=== PATIENT | female | born 1930 | race Caucasian/White ===

== ENCOUNTER → 2017-09-19 | Outpatient (CLI) | payer MEDICARE ==
[~2017-09-19] MED LIST: CALC600T34 PO; COLA100C OR; IBUP400T20 PO; LEVO75TA42 PO; OMEP20TA OR; TAB-TAB PO; TRAM50 PO
--- NOTE | 2017-09-19 10:07 | RADRPT ---
EXAM DATE/TIME: 09/19/2017 00:00 [facility] COMPARISON: No previous studies available for comparison. PET-CT performed at [facility] on 09/13/2017. INDICATIONS : Request for thyroid biopsy. IMAGING STUDIES: The prior imaging study demonstrates diffuse hypermetabolic activity within the thyroid gland. There is no focal thyroid nodule visualized. Patient also has multiple hypermetabolic enlarged lymph nodes. CONCLUSION: The prior study demonstrated diffusely abnormal activity in a pattern suggesting a thyroiditis, Pippa inocencia's being one of the most common. It is not in a pattern to indicate metastatic disease and no foc al nodule is present to direct biopsy based on the CT scan. Consider correlating with thyroid ultraso und and the patient's thyroid laboratory values.. Naga Minor MD on September 19, 2017 at 10:02 Board Certified Radiologist. This report was verified electronically.
== END ==
LOC: HRAD 09:47
PROVIDERS: ATTEND Internal Medicine Hematology & Oncology
DX: E07.9 Disorder of thyroid, unspecified (principal)

== ENCOUNTER 2017-12-12 12:51 | Day surgery (SDC) | payer MEDICARE ==
[2017-12-12 13:28] VITALS: BP 180/84; PULSE 69; RESP 14; TEMP 97; O2SAT 100
[2017-12-12 14:15] VITALS: BP 150/70; PULSE 63; RESP 20; TEMP 97.4; O2SAT 96
[2017-12-12 14:30] VITALS: BP 134/70; PULSE 64; RESP 20; O2SAT 99
[2017-12-12] MEDS ORDERED: LIDOCAINE HCL 1% 20 ML VIAL ONE (15:29)
--- NOTE | 2017-12-12 16:18 | RADRPT ---
EXAM DATE/TIME: 12/12/2017 13:33 [facility] COMPARISON: No previous studies available for comparison. EXTERNAL COMPARISON: [facility], PET /CT Tumor Metabolism, Sep 13 2017. INDICATIONS : Left supraclavicular mass; enlarged lymp nodes. MEDICAL HISTORY : Left kidney cancer. Hypertension. Hemorrhoids. SURGICAL HISTORY : Left kidney biopsy and nephrectomy. Ureter removed. Appendetomy. Uterine suspension. Bladder scra ping. Cataract. Colectomy. Cystectomy. Foot surgery. Gastric bypass. Hemorrhoidectomy. Colono scopy. ENCOUNTER: Initial ACUITY: 2 months PAIN SCORE: 0/10 LOCATION: Left neck ORGAN: Left lymph node SPECIMENS: Three core specimen(s) submitted for pathologic evaluation. DEVICE: 18 gauge Temno needle Post procedure scanning reveals no hematoma or other complication. The possibility does exist that the tissue obtained will be non-diagnostic. If the sample is non-juan miguel gnostic a repeat biopsy or surgical biopsy may need to be performed. TECHNIQUE: 1. Ultrasound guidance for needle biopsy. 2. Needle biopsy. The risks, benefits and alternatives to the procedure were explained and verbal and written consent w as obtained. The site was prepped in sterile fashion. Full sterile technique was used, including ca p, mask, sterile gloves and gown and a large sterile sheet. Hand hygiene and 2% chlorhexidine and/or betadine/alcohol prep was utilized per protocol for cutaneous antisepsis. The skin and subcutaneous tissues were infiltrated with local anesthetic solution. Sterile gel and sterile probe cover were u tilized for ultrasound guidance. With the patient on the ultrasound table, images were obtained. A needle was advanced into the identified target and the number of specimens as above obtained and soriano bmitted for pathologic evaluation. The patient tolerated the procedure well and left the ultrasound suite in stable condition. CONCLUSION: Uncomplicated ultrasound guided needle biopsy in left neck. Ronnie Rankin MD on December 12, 2017 at 16:14 Board Certified Radiologist. This report was verified electronically.
== END 2017-12-12 14:33 | disposition home or self-care (01) ==
LOC: HRAD 12:51 → HRIP 12:53 → HRAD 14:33
PROVIDERS: ATTEND Internal Medicine Hematology & Oncology
DX: C77.4 Secondary and unspecified malignant neoplasm of inguinal and lower limb lymph nodes (principal); I10 Essential (primary) hypertension; Z85.528 Personal history of other malignant neoplasm of kidney; Z98.84 Bariatric surgery status
CPT/HCPCS: 38505; 76942; 88305; 88331; 88341; 88342

== ENCOUNTER 2018-02-10 15:55 | Inpatient (IN) | payer MEDICARE ==
[~2018-02-10] VITALS: Ht 157.5 cm; Wt 59.7 kg
[2018-02-10 16:22] VITALS: BP 153/72; PULSE 78; RESP 20; TEMP 97.5; O2SAT 98
[2018-02-10 17:26] LABS: AUTOMATED NEUTROPHIL # 6.8 TH/MM3 (1.8-7.7); BASOPHIL % 0.3 % (0.0-2.0); EOSINOPHIL # 0.1 TH/MM3 (0-0.4); EOSINOPHIL % 1.2 % (0.0-4.0); HEMATOCRIT 30.7 % (35.0-46.0); HEMOGLOBIN 10.3 GM/DL (11.6-15.3); LYMPH % 14.5 % (9.0-44.0); LYMPHOCYTE # 1.4 TH/MM3 (1.0-4.8); MEAN CELL VOLUME 86.8 FL (80.0-100.0); MEAN CORPUSCULAR HEMOGLOBIN 29.2 PG (27.0-34.0); MEAN CORPUSCULAR HGB CONC 33.7 % (32.0-36.0); MEAN PLATELET VOLUME 6.6 FL (7.0-11.0); MONO % 13.2 % (0.0-8.0); MONOCYTE # 1.3 TH/MM3 (0-0.9); NEUT % 70.8 % (16.0-70.0); PLATELET COUNT 353 TH/MM3 (150-450); RED BLOOD COUNT 3.53 MIL/MM3 (4.00-5.30); WHITE BLOOD COUNT 9.6 TH/MM3 (4.0-11.0)
[2018-02-10 17:33] LABS: PROTHROMBIN TIME - PATIENT 10.5 SEC (9.8-11.6)
[2018-02-10 17:43] LABS: ALBUMIN 2.8 GM/DL (3.4-5.0); ALT (GPT) 70 U/L (10-53); AST (GOT) 90 U/L (15-37); BICARBONATE 22.3 MEQ/L (21.0-32.0); BLOOD UREA NITROGEN 70 MG/DL (7-18); CHLORIDE 99 MEQ/L (98-107); CREATININE 9.12 MG/DL (0.50-1.00); GLOMERULAR FILTRATION RATE 4 ML/MIN (>89); GLUCOSE,RANDOM 95 MG/DL (74-106); SODIUM (NA) 133 MEQ/L (136-145)
--- NOTE | 2018-02-10 17:44 | RADRPT ---
EXAM DATE/TIME: 02/10/2018 17:15 [facility] COMPARISON: US GUIDED LYMPH NODE BIOSPY, LT, December 12, 2017, 13:33. INDICATIONS : Bilateral leg swelling. MEDICAL HISTORY : Left kidney cancer. Hypertension. Hemorrhoids. SURGICAL HISTORY : Left kidney biopsy and nephrectomy. Ureter removed. Appendetomy. Uterine suspension. Bladder scraping . Cataract. Colectomy. Cystectomy. Foot surgery. Gastric bypass. Hemorrhoidectomy. Colonoscopy. ENCOUNTER: Initial ACUITY: 1 week PAIN SCORE: 2/10 LOCATION: Bilateral legs. TECHNIQUE: Venous ultrasound of the left and right leg was performed from the inguinal ligament to the proximal calf. Real-time, color Doppler and spectral tracing, compression and augmentation techniques were us ed. FINDINGS: RIGHT LEG: There is normal compressibility of the deep venous system from the inguinal region to the proximal ca lf. No echogenic clot is seen in the lumen of the common femoral, femoral, popliteal, and posterior tibial veins. There is a normal response of the venous system to proximal and distal augmentation an d respiration. LEFT LEG: There is normal compressibility of the deep venous system from the inguinal region to the proximal ca lf. No echogenic clot is seen in the lumen of the common femoral, femoral, popliteal, and posterior tibial veins. There is a normal response of the venous system to proximal and distal augmentation an d respiration. CONCLUSION: 1. No DVT identified within either lower extremity. Luis Echevarria MD on February 10, 2018 at 17:42 Board Certified Radiologist. This report was verified electronically.
[2018-02-10 17:46] LABS: ALKALINE PHOSPHATASE 238 U/L (45-117); TOTAL BILIRUBIN ADULT 0.3 MG/DL (0.2-1.0); TOTAL PROTEIN 7.3 GM/DL (6.4-8.2)
[2018-02-10 19:11] VITALS: BP 210/94; PULSE 91; RESP 20; TEMP 98; O2SAT 98
[2018-02-10] MEDS ORDERED: LEVO75TA3 PO (19:14)
[2018-02-10] MEDS ORDERED: CALC500C2 CHEW (19:14)
[2018-02-10] MEDS ORDERED: CHLO25TA2 PO (19:14)
[2018-02-10] MEDS ORDERED: OMEP20TA93 PO (19:14)
[2018-02-10] MEDS ORDERED: MULTTAB67 PO (19:14)
[2018-02-10] MEDS ORDERED: AMLO2.5T PO (19:14)
--- NOTE | 2018-02-10 19:36 | PD ---
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 Pt follows with oncologist Dr. Wall and is on immunotherapy Ktruda. Pt comes in today because she had left leg pain for a few days that is worst with walking. Also said she is not urinating as much today and only very little when she does urinate which is not her normal. Denies any fever, chest pain, sob, n/v, abdominal pain, focal weakness or numbness. Denies any trauma. Has chronic back pain. PFSH Past Medical History Diminished Hearing: No Musculoskeletal: Yes (CHRONICRIGHT SHOULDER PAIN) Immunizations Current: Yes Thyroid Disease: Yes Tetanus Vaccination: Unknown Influenza Vaccination: No ?: Not : 4 Past Surgical History Appendectomy: Yes Genitourinary Surgery: Yes (UTERINE SUSPENSION) Social History Alcohol Use: Yes (DAILY) Tobacco Use: No Substance Use: No Allergies-Medications (Allergen,Severity, Reaction): Coded Allergies: codeine (Unverified Allergy, Severe, 07/16/17) Reported Meds & Prescriptions Reported Meds & Active Scripts Active Reported Calcium (Calcium Carbonate-Cholecalciferol) 1,250-100 Mg-Unit Chew 1 Tab CHEW Multiple Vitamin 1 Tab 1 Tab PO DAILY Amlodipine (Amlodipine Besylate) 2.5 Mg Tab 2.5 Mg PO DAILY Omeprazole 20 Mg Tab 20 Mg PO DAILY Chlorthalidone 25 Mg Tab 25 Mg PO DAILY Levothyroxine (Levothyroxine Sodium) 75 Mcg Tab 75 Mcg PO DAILY Review of Systems Except as stated in HPI: all other systems reviewed are Neg Physical Exam Narrative GENERAL: 87yo F not in distress. SKIN: Focused skin assessment warm/dry. HEAD: Atraumatic. Normocephalic. EYES: Pupils equal and round. No scleral icterus. No injection or drainage. ENT: No nasal bleeding or discharge. Mucous membranes pink and moist. NECK: Trachea midline. No JVD. CARDIOVASCULAR: Regular rate and rhythm. No murmur appreciated. RESPIRATORY: No accessory muscle use. Clear to auscultation. Breath sounds equal bilaterally. GASTROINTESTINAL: Abdomen soft, mild ttp. No rebound tenderness or guarding. MUSCULOSKELETAL: RLE: DP2+. LLE: DP1+. Mild edema in bilateral legs. NEUROLOGICAL: Awake and alert. No obvious cranial nerve deficits. Motor grossly within normal limits in all extremities. Sensation equal. Normal speech. PSYCHIATRIC: Appropriate mood and affect; insight and judgment normal. Data Data Last Documented VS Vital Signs Date Time Temp Pulse Resp B/P (MAP) Pulse Ox O2 Delivery O2 Flow Rate FiO2 02/10/18 19:11 98.0 91 20 210/94 (132) 98 Room Air Orders Orders Complete Blood Count With Diff (02/10/18 16:25) Comprehensive Metabolic Panel (02/10/18 16:25) Prothrombin Time / Inr (Pt) (02/10/18 16:25) Act Partial Throm Time (Ptt) (02/10/18 16:25) B-Type Natriuretic Peptide (02/10/18 16:25) Us Leg Venous Doppler Bilat (02/10/18 ) Admit To Inpatient (02/10/18 ) Code Status (02/10/18 19:44) Vital Signs (Adult) Q4H (02/10/18 19:44) Activity Oob With Assistance (02/10/18 19:44) Clerk Operator / Telemetry .CONTINUOUS (02/10/18 19:44) Diet Heart Healthy (02/11/18 Breakfast) Sodium Chloride 0.9% Flush (Ns Flush) (02/10/18 19:45) Sodium Chloride 0.9% Flush (Ns Flush) (02/10/18 21:00) Acetaminophen (Tylenol) (02/10/18 19:45) Ondansetron Inj (Zofran Inj) (02/10/18 19:45) Basic Metabolic Panel (Bmp) (02/11/18 06:00) Complete Blood Count With Diff (02/11/18 06:00) Chest, Single Ap (02/10/18 19:44) Electrocardiogram (02/10/18 19:44) Pt Request For Service (02/10/18 19:44) Scd Bilateral/Knee High ISAIAH.BID (02/10/18 19:44) Naloxone Inj (Narcan Inj) (02/10/18 19:45) Bisacodyl Supp (Dulcolax Supp) (02/10/18 19:45) Inpatient Certification (02/10/18 ) Sodium Chlor 0.9% 1000 Ml Inj (Ns 1000 M (02/10/18 20:00) Consult Nephrology (02/10/18 ) Levothyroxine (Synthroid) (02/11/18 06:00) Pantoprazole (Protonix) (02/11/18 09:00) Sodium Chlor 0.9% 1000 Ml Inj (Ns 1000 M (02/10/18 20:00) Admit Order (Ed Use Only) (02/10/18 19:51) Labs Laboratory Tests Test 02/10/18 17:05 White Blood Count 9.6 TH/MM3 Red Blood Count 3.53 MIL/MM3 Hemoglobin 10.3 GM/DL Hematocrit 30.7 % Mean Corpuscular Volume 86.8 FL Mean Corpuscular Hemoglobin 29.2 PG Mean Corpuscular Hemoglobin Concent 33.7 % Red Cell Distribution Width 14.0 % Platelet Count 353 TH/MM3 Mean Platelet Volume 6.6 FL Neutrophils (%) (Auto) 70.8 % Lymphocytes (%) (Auto) 14.5 % Monocytes (%) (Auto) 13.2 % Eosinophils (%) (Auto) 1.2 % Basophils (%) (Auto) 0.3 % Neutrophils # (Auto) 6.8 TH/MM3 Lymphocytes # (Auto) 1.4 TH/MM3 Monocytes # (Auto) 1.3 TH/MM3 Eosinophils # (Auto) 0.1 TH/MM3 Basophils # (Auto) 0.0 TH/MM3 CBC Comment DIFF FINAL Differential Comment Prothrombin Time 10.5 SEC Prothromb Time International Ratio 1.0 RATIO Activated Partial Thromboplast Time 31.0 SEC Blood Urea Nitrogen 70 MG/DL Creatinine 9.12 MG/DL Random Glucose 95 MG/DL Total Protein 7.3 GM/DL Albumin 2.8 GM/DL Calcium Level 9.0 MG/DL Alkaline Phosphatase 238 U/L Aspartate Amino Transf (AST/SGOT) 90 U/L Alanine Aminotransferase (ALT/SGPT) 70 U/L Total Bilirubin 0.3 MG/DL Sodium Level 133 MEQ/L Potassium Level 4.7 MEQ/L Chloride Level 99 MEQ/L Carbon Dioxide Level 22.3 MEQ/L Anion Gap 12 MEQ/L Estimat Glomerular Filtration Rate 4 ML/MIN B-Type Natriuretic Peptide 293 PG/ML MDM Medical Decision Making Medical Screen Exam Complete: Yes Emergency Medical Condition: Yes Interpretation(s) EKG: NSR 79bpm. LAD. LBBB. Differential Diagnosis Arterial insufficiency vs. DVT vs. BONY Narrative Course 87yo F with bladder CA here with decrease urination and left leg pain. Labs reviewed, no leukocytosis. H/H low at 10.3/30.7. BUN/creatinine elevated at 70 /9.12. Discussed with Dr. Wall and he said her baseline is 1.5 and this is acute. Advise admission and nephrology consult and IV hydration. US bilateral lower extremity showed no DVT. Discussed with Dr. Camarillo and accepted to his service. Neprhology paged. Discussed with putty and caulking supervisor Dr. Wall and he recommends CT a/p- to r/o obstructive uropathy first. CT a/p ordered. CT a/p showed previous nephroureterectomy. 18mm mass in the nephrectomy bed and mass in the urinary bladder posterolaterally on the left, presumably recurrent disease. Metastatic retroperitoneal lymphadenopathy. Mild to moderate right hydronephrosis which is potentially pathologic but could also be benign congenital UPJ obstruction. Critical Care Narrative Aggregate critical care time was 35 minutes. Time to perform other separately billable procedures was not included in the critical care time. My time did not include minutes spent treating any other patients simultaneously or on activities that did not directly contribute to the patient's treatment. The services I provided to this patient were to treat and/or prevent clinically significant deterioration that could result in: cardiovascular collapse or . I provided critical care services requiring my management, as noted below: Chart data review, documentation time, medication orders and management, vital sign assessments/reviewing monitor data, ordering and reviewing lab tests, ordering and interpreting/reviewing x-rays and diagnostic studies, care of the patient and discussion of the patient with the admitting physicians. Diagnosis Primary Impression: BONY (acute kidney injury) Admitting Information Admitting Physician Requests: Admit Josefa Eaton DO Feb 10, 2018 19:36
[2018-02-10] MEDS ORDERED: ONDANSETRON HCL 4 MG/2 ML VIAL IVP PRN (19:45)
[2018-02-10] MEDS ORDERED: NALOXONE HCL 0.4 MG/ML AMP IV PUSH PRN (19:45)
[2018-02-10] MEDS ORDERED: SODIUM CHLORIDE 0.9% FLUSH 10 ML FLUSH IV FLUSH PRN (19:45)
[2018-02-10] MEDS ORDERED: BISACODYL 10 MG SUPP RECTAL PRN (19:45)
[2018-02-10 19:57] VITALS: BP 168/72; PULSE 88; RESP 20; TEMP 98.2; O2SAT 98
[2018-02-10] MEDS ORDERED: SODIUM CHLOR 0.9% 1000 ML INJ 1,000 ML IV ONE (20:00)
--- NOTE | 2018-02-10 20:07 | RADRPT ---
EXAM DATE/TIME: 02/10/2018 19:54 [facility] COMPARISON: No previous studies available for comparison. INDICATIONS : Bilateral leg swelling. MEDICAL HISTORY : Left kidney cancer. Hypertension. SURGICAL HISTORY : Nephrectomy, left. ENCOUNTER: Initial ACUITY: 1 week PAIN SCORE: 0/10 LOCATION: Bilateral chest FINDINGS: There is mild blunting of both costophrenic angles compatible scarring or very small effusions. No la rge effusion demonstrated. There is questionable right hilar mass. No infiltrate or pneumothorax. Heart size within normal limits. CONCLUSION: 1. Possible mass or lymphadenopathy in the right hilum. CT of the chest, preferably with intravenous contrast, is suggested if felt clinically indicated. 2. Bibasilar scarring versus very small pleural effusions. No acute infiltrate. Naga Rowan MD on February 10, 2018 at 20:03 Board Certified Radiologist. This report was verified electronically.
[2018-02-10] MEDS: SODIUM CHLORIDE 0.9% FLUSH 10 ML FLUSH IV FLUSH SCH (20:18)
[2018-02-10] MEDS: SODIUM CHLOR 0.9% 1000 ML INJ 1,000 ML IV SCH (20:19)
--- NOTE | 2018-02-10 21:00 | RADRPT ---
EXAM DATE/TIME: 02/10/2018 20:30 [facility] COMPARISON: No previous studies available for comparison. INDICATIONS : Unable to urinate. Possible obstructive uropathy. ORAL CONTRAST: No oral contrast ingested. RADIATION DOSE: 6.64 CTDIvol (mGy) MEDICAL HISTORY : Urothelial cell carcinoma SURGICAL HISTORY : Appendectomy. Nephrectomy, left. Uterine suspension ENCOUNTER: Initial ACUITY: 1 day PAIN SCALE: 0/10 LOCATION: abdomen TECHNIQUE: Volumetric scanning of the abdomen and pelvis was performed. Using automated exposure control and ad justment of the mA and/or kV according to patient size, radiation dose was kept as low as reasonably achievable to obtain optimal diagnostic quality images. DICOM format image data is available electro nically for review and comparison. FINDINGS: Patient is status post left nephrectomy. There is a 1.8 cm mass and several subcentimeter nodules in the nephrectomy bed. There is a 2.3 cm mass posterolaterally of the urinary bladder. There is retroperitoneal/aortocaval lymphadenopathy from the level of the renal arteries to the bifur cation and measuring up to 2.0 x 2.8 cm in greatest transaxial dimension. Numerous vague hypodense masses are seen in the liver measuring up to 4.7 cm in size compatible with metastatic disease. A few scattered small benign cysts of the liver also seen, the largest in the lef t hepatic lobe measuring approximately 1.7 cm. Mild to moderate right hydronephrosis, nonspecific but the features suggest quite possibly related to benign congenital UPJ obstruction. An approximately 1.4 x 1.8 cm right common iliac lymph node is no montserrat and does cause mild mass effect on the ureter. Lung bases are only partly included on the study. There are small, bilateral pleural effusions. No acute bony abnormality demonstrated. CONCLUSION: 1. Previous left nephroureterectomy. 18 mm mass in the nephrectomy bed and mass in the urinary bladde r posterolaterally on the left, presumably recurrent disease. 2. Metastatic retroperitoneal lymphadenopathy. 3. Metastatic liver disease. 4. Mild to moderate right hydronephrosis which is potentially pathologic but could also be benign con genital UPJ obstruction. Comparison to old studies would be helpful. Please see above. 5. Trace ascites. Also mild body wall edema/anasarca. 6. Small bilateral pleural effusions of the visualized lung bases. Naga Rowan MD on February 10, 2018 at 20:48 Board Certified Radiologist. This report was verified electronically.
[2018-02-10 21:06] LABS: BILIRUBIN, URINE NEG (NEG); BLOOD, URINE MOD (NEG); GLUCOSE,URINE NEG (NEG); KETONE, URINE NEG (NEG); NITRITE,URINE NEG (NEG); PH, URINE 5.5 (5.0-8.5); URINE COLOR LIGHT-YELLOW (YELLW/STRAW); URINE LEUKOCYTE ESTERASE NEG (NEG)
[2018-02-10] MEDS: ACETAMINOPHEN 325 MG TAB PO PRN (22:49)
[2018-02-11] VITALS (12 sets, daily range): BP systolic 126–185; BP diastolic 59–81; PULSE 67–92; RESP 16–20; TEMP 97.8–99.4; O2SAT 96–100
[2018-02-11] MEDS: SODIUM CHLOR 0.9% 1000 ML INJ 1,000 ML IV SCH ×2 (06:14→17:11)
[2018-02-11] MEDS: LEVOTHYROXINE SODIUM 75 MCG TAB PO SCH (06:14)
[2018-02-11 08:45] LABS: BASOPHIL % 0.3 % (0.0-2.0); EOSINOPHIL # 0.1 TH/MM3 (0-0.4); HEMATOCRIT 28.5 % (35.0-46.0); HEMOGLOBIN 9.7 GM/DL (11.6-15.3); LYMPH % 16.8 % (9.0-44.0); LYMPHOCYTE # 1.7 TH/MM3 (1.0-4.8); MEAN CELL VOLUME 88.2 FL (80.0-100.0); MONO % 13.7 % (0.0-8.0); MONOCYTE # 1.4 TH/MM3 (0-0.9); NEUT % 68.2 % (16.0-70.0); PLATELET COUNT 362 TH/MM3 (150-450); RED BLOOD COUNT 3.23 MIL/MM3 (4.00-5.30); RED CELL DISTRIBUTION WIDTH 14.4 % (11.6-17.2); WHITE BLOOD COUNT 10.3 TH/MM3 (4.0-11.0)
[2018-02-11] MEDS: PANTOPRAZOLE SOD 20 MG DELAYED RELEASE TAB PO SCH (09:00)
[2018-02-11] MEDS: SODIUM CHLORIDE 0.9% FLUSH 10 ML FLUSH IV FLUSH SCH ×2 (09:00→21:00)
[2018-02-11 09:21] LABS: BICARBONATE 18.4 MEQ/L (21.0-32.0); CALCIUM 9.1 MG/DL (8.5-10.1); CREATININE 9.38 MG/DL (0.50-1.00)
[2018-02-11] MEDS ORDERED: LEVOFLOXACIN 500 MG PREMIX INJ 100 ML IV ONE (10:00)
--- NOTE | 2018-02-11 10:24 | MB ---
cc: Tanner Wall MD DATE OF CONSULT: 02/11/2018 TIME OF CONSULTATION: 8:20 a.m. CONSULT REQUESTED BY: The hospitalist service. 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 CURRENT TREATMENT: The patient is on palliative first line immunotherapy with Keytruda, she is status post 2 cycles with cycle #2 delivered on 02/05/2018. CHIEF COMPLAINT: 1. Ms. Parra reports decreased urinary output for the past 4 days. 2. She reports blood-tinged scant urine for the past 4 days. 3. She reports a 7 pound weight gain. 4. She reports leg swelling and pain in her legs as well. HISTORY OF PRESENT ILLNESS: Ms. Parra is an 87-year-old female who is known to me from my outpatient oncology practice. Ms. 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 She underwent evaluation with Dr. Edwards of [facility] and in late July underwent surgical resection. She underwent a left nephrectomy, left ureterectomy for removal of the ureteric lesion. Her bladder tumor was also resected. She was noted during surgery to have pathologically enlarged retroperitoneal lymph nodes which were biopsied. After undergoing surgery, she was referred to myself. She underwent evaluation and then staging studies. PET/CT scan performed postop revealed findings of neoplastic adenopathy involving the base of the left neck, left axillary lymphadenopathy, as well as diffuse paraaortic, retroperitoneal lymphadenopathy. Nonspecific subcentimeter pulmonary nodules were also identified. The patient was offered palliative systemic therapy at that time. She declined in favor of observation alone. The patient was periodically followed by myself. In 12/2016, she developed progressive symptoms of lymphadenopathy along the left side of her neck. She developed abdominal pain and was losing weight. Restaging imaging scans from 12/24/2017 revealed findings of worsening metastatic disease involving the supraclavicular lymph nodes in the mediastinum, as well as in the lungs. She was recommended image-guided biopsy of the left supraclavicular lymph node which was performed on 12/12/2017. This revealed findings consistent with high-grade metastatic urothelial cell carcinoma. She was initiated on palliative immunotherapy with Keytruda in 01/2018, she received her second cycle in early 01/2018. Clinically she was noted to have a significant reduction in size of the left supraclavicular lymphadenopathy. She developed the above-noted symptoms less than a week ago and presented to [facility] last night for further work up and evaluation. She was noted to have a creatinine of 9 on 01/31/2018. Outpatient labs performed at [facility] revealed a creatinine of 1.55. PAST MEDICAL HISTORY: 1. 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 2. Hemorrhoids. 3. Chronic kidney insufficiency. PAST SURGICAL HISTORY: 1. Appendectomy. 2. Cataract removal. 3. Partial colectomy. 4. Colonoscopy. 5. Cystoscopy. 6. Foot surgery. 7. Gastric bypass. 8. Hemorrhoidectomy. 9. Left nephroureterectomy with transurethral resection of bladder tumor in 07/2017. 10. Tooth implants. 11. Ureteroscopy. GYNECOLOGIC HISTORY: 4, para 4, postmenopausal. FAMILY HISTORY: Mother had diabetes. Father of metastatic malignancy. SOCIAL HISTORY: The patient is . She lives at home alone. She has children who are very supportive. She reports formerly being a smoker, but she quit about 40 years ago. She is originally from [place]. ALLERGIES: NORA INHIBITORS, CIPRO, CODEINE, OPIOIDS, TRAMADOL. CURRENT INPATIENT MEDICATIONS: 1. Normal saline 100 mL/hr. 2. Levothyroxine 75 mcg by mouth daily. 3. Pantoprazole 40 mg by mouth daily. REVIEW OF SYSTEMS: Thirteen point review of systems was obtained. The following are the pertinent positives in addition to which she has already mentioned. She reports decreased appetite, weakness, fatigue, weight gain. She reports having had chills, as well as night sweats. Maximum temperature noted at home was 100.7 degrees F three nights ago. HEENT: No complaints. RESPIRATORY: Exertional dyspnea, denies cough or hemoptysis. CARDIOVASCULAR: Denies angina-like chest pain, PND, orthopnea. GI: She reports nausea. She denies vomiting. She denies diarrhea. She denies hematochezia. She reports tenderness in the lower abdomen. : Reports decreased urinary output. She reports occasional blood tinging in the urine. DIGITAL MEASUREMENT ADVISOR: Denies any focal sensory or motor deficits. LOWER EXTREMITIES: Bilateral lower extremity edema. SKIN: No complaints. PHYSICAL EXAMINATION: VITAL SIGNS: Temperature 97.8 degrees F, heart rate 67 beats per minute, respiratory rate 17, blood pressure 156/67, O2 sat is 97% on room air. GENERAL PHYSICAL APPEARANCE: Ms. Parra is an elderly lady, she appears to be somewhat frail, she appears to have swelling of the face as compared to a week ago. She is not acutely distress. She is sitting up at bedside. Her [id number] is at bedside too. HEENT: Head is atraumatic, normocephalic. Conjunctivae are pale. Sclerae anicteric, EOMI, PERRLA. Oral exam, dry mucus membranes. NECK: Pathologically enlarged shotty lymph nodes involving the left supraclavicular area, these are significantly decreased in size when compared to a month ago. RESPIRATORY EXAM: Good air movement bilaterally. No added breath sounds. CARDIOVASCULAR: Regular rate and rhythm, S1 and S2. No obvious murmurs, rubs or gallops. ABDOMINAL EXAM: Thin belly, soft, no hepatosplenomegaly. There is tenderness over the suprapubic area and over the left lower quadrant. LOWER EXTREMITIES: Trace bilateral pretibial edema, no calf tenderness. DIGITAL MEASUREMENT ADVISOR: No focal sensory or motor deficits. LABORATORY FINDINGS: BLOOD WORK DATED 02/01/2018: WBC count 10.3, hemoglobin 9.7 g/dL, hematocrit 28.5%, platelet count 362, absolute neutrophil count is 7. CHEMISTRIES: Sodium 133, potassium 4.7, chloride 99, bicarb 22.3, BUN 70, creatinine 9.12, EGFR is 4, random glucose 95, total bilirubin 0.3, AST 90, ALT 70, alkaline phosphatase 238, BNP is 293, albumin is 2.8. COAGS: PT 10.5, INR 1, PTT 31. IMAGING STUDIES: CT SCAN: CT scan of the abdomen and pelvis without IV contrast reveals status post left nephrectomy. 18 mm mass in the nephrectomy bed and a mass in the urinary bladder posterolaterally on the left side. Metastatic retroperitoneal adenopathy. Metastatic hepatic disease. Mild to moderate right hydronephrosis which is potentially pathologic, but could also be benign. There could be UPJ obstruction. Trace ascites. Small bilateral pleural effusions noted. ASSESSMENT: Ms. Parra is a very pleasant 87-year-old lady with a diagnosis of metastatic high-grade urothelial cell carcinoma of the bladder with biopsy-proven supraclavicular metastases. She also has significant metastatic disease burden involving the retroperitoneal lymph nodes, mediastinal lymph nodes and now liver metastases as well, mediastinal lymph nodes and what appears to be new hepatic metastases based on imaging studies performed last night. She presents to the hospital with acute on chronic renal failure. She has an oliguric kidney injury given her lack of urine output over the past 3 or 4 days. Imaging studies indicate possible ureteric obstruction on the right side. RECOMMENDATIONS: 1. Acute kidney failure, this may be related to ureteric obstruction secondary to possible malignant lymphadenopathy in the retroperitoneum or possible obstruction at the level of the bladder secondary to malignancy. I have requested urologic evaluation by her primary urologist, Dr. Edwards for possible ureteric stent placement. She may also benefit from percutaneous nephrostomy. 2. The patient is awaiting evaluation by a senior java ui developer to determine if she is a candidate for renal replacement therapy at this time. 3. 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 She is status post 2 cycles, her response has yet to be determined. In light of the acute issues, I would like to discuss long-term management, as well as goals of care. Ms. Parra certainly has disease which is not curable given the extent of metastases. If she prefers, she may wish to pursue comfort oriented care if it comes to a point where she will require life-long hemodialysis/renal replacement therapy. I have yet to discuss long-term goals of care with her given the acute issues we are facing and our attempts to optimize her renal function aggressively at this point. MD OMARI Florian/MENDEL , 09:07 AM , 10:22 AM
--- NOTE | 2018-02-11 10:30 | HHI.HP ---
HPI Service [facility] Hospitalists Primary Care Physician Shadi Segura M.D. Admission Diagnosis BONY Chief Complaint: Decreased UOP Travel History International Travel<30 Days: No Contact w/Intl Traveler <30 Da: No Traveled to Known Affected Are: No History of Present Illness Mrs. 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 Pt follows with Dr. Wall. Pt has undergone left nephrectomy and left ureterectomy in 2017 and she recently began palliative systemic chemo with Keytruda. Pt presented to the ED at [facility] [place] [place] on 02/10/18 with complaints of left leg pain for a few days that is worse with walking and decreased UOP. She reported that for 2 days prior to admission that she did not have any UOP and then yesterday there was only a very small amount of urine when she does urinate which is not her normal. Labs in the ED revealed BONY with Cr 9.12, BUN 70, GFR 4. Outpt labs on 01/30/18 noted Cr 1.55, BUN 27, GRF 34. CT Abd/pelvis in the ED noted previous left nephroureterectomy, 18 mm mass in the nephrectomy bed and mass in the urinary bladder posterolaterally on the left, presumably recurrent disease, metastatic retroperitoneal lymphadenopathy, metastatic liver disease, mild to moderate right hydronephrosis which is potentially pathologic but could also be benign congenital UPJ obstruction. It also mild body wall edema/anasarca and small bilateral pleural effusions of the visualized lung bases. Pt denies any abd pain, chest pain, SOB, nausea/vomiting, fevers or chills. Review of Systems Constitutional: DENIES: Fever, Chills Respiratory: DENIES: Cough, Shortness of breath Cardiovascular: DENIES: Chest pain, Dyspnea on Exertion, Lower Extremity Edema Gastrointestinal: DENIES: Abdominal pain, Diarrhea, Nausea, Vomiting Musculoskeletal: COMPLAINS OF: Muscle aches Integumentary: DENIES: Rash Immunologic/allergic: DENIES: Urticaria Neurologic: DENIES: Headache Psychiatric: DENIES: Confusion Other Decreased UOP Past Family Social History Past Medical History Metastatic urothelial cell carcinoma of the bladder and ureter with biopsy proven mets to supraclavicular LN and radiographic evidence of retroperitoneal, mediastinal, axillary and pulmonary mets. Pt follows with Dr. Wall. Pt has undergone left nephrectomy and left ureterectomy. She recently began palliative systemic chemo with Keytruda. . Anemia Osteoarthritis Hx of vertigo GERD HTN Hypothyroidism Pulmonary HTN Past Surgical History Left nephrectomy with TURBT in 2017 Appendectomy Cataract surgery Cystectomy Gastric bypass Hemorrhoidectomy Reported Medications Calcium 1,250-100 Mg-Unit 1 Tab CHEW Multiple Vitamin 1 Tab PO DAILY Amlodipine 2.5 Mg PO DAILY Omeprazole 20 Mg PO DAILY Chlorthalidone 25 Mg PO DAILY Levothyroxine 75 Mcg PO DAILY Allergies: Coded Allergies: codeine (Unverified Allergy, Severe, 07/16/17) Family History Noncontributory Social History Remote hx of tobacco use, quit 40 years ago Occasional alcohol use She is and lives locally Physical Exam Vital Signs Vital Signs Date Time Temp Pulse Resp B/P (MAP) Pulse Ox O2 Delivery O2 Flow Rate FiO2 02/11/18 07:21 67 17 156/67 (96) 97 Room Air 02/11/18 06:37 78 20 154/66 (95) 98 Room Air 02/11/18 03:20 97.8 76 20 142/62 (88) 98 Room Air 02/11/18 00:16 20 02/11/18 00:00 98.0 72 20 156/68 (97) 98 Room Air 02/10/18 19:57 98.2 88 20 168/72 (104) 98 Room Air 02/10/18 19:11 98.0 91 20 210/94 (132) 98 Room Air 02/10/18 16:22 97.5 78 20 153/72 (99) 98 Physical Exam GENERAL: This is a well-nourished, well-developed patient, in no apparent distress. SKIN: No rashes, ecchymoses or lesions. Cool and dry. HEENT: Atraumatic. Normocephalic. No temporal or scalp tenderness. No scleral icterus. Airway patent. NECK: Trachea midline, supple, nontender. CARDIO: Regular. RESP: CTA bilaterally. No wheezes, rales, or rhonchi. ABD: +BS, soft, non-tender, nondistended. No hepato-splenomegaly, or palpable masses. No guarding. EXT: Minimal bilateral LE edema. Negative Barajas's sign NEURO: Awake and alert. Motor and sensory grossly within normal limits. Normal speech. Laboratory Laboratory Tests Test 02/10/18 17:05 02/10/18 20:25 02/11/18 07:35 White Blood Count 9.6 10.3 Red Blood Count 3.53 3.23 Hemoglobin 10.3 9.7 Hematocrit 30.7 28.5 Mean Corpuscular Volume 86.8 88.2 Mean Corpuscular Hemoglobin 29.2 30.0 Mean Corpuscular Hemoglobin Concent 33.7 34.0 Red Cell Distribution Width 14.0 14.4 Platelet Count 353 362 Mean Platelet Volume 6.6 7.0 Neutrophils (%) (Auto) 70.8 68.2 Lymphocytes (%) (Auto) 14.5 16.8 Monocytes (%) (Auto) 13.2 13.7 Eosinophils (%) (Auto) 1.2 1.0 Basophils (%) (Auto) 0.3 0.3 Neutrophils # (Auto) 6.8 7.0 Lymphocytes # (Auto) 1.4 1.7 Monocytes # (Auto) 1.3 1.4 Eosinophils # (Auto) 0.1 0.1 Basophils # (Auto) 0.0 0.0 CBC Comment DIFF FINAL DIFF FINAL Differential Comment Prothrombin Time 10.5 Prothromb Time International Ratio 1.0 Activated Partial Thromboplast Time 31.0 Blood Urea Nitrogen 70 73 Creatinine 9.12 9.38 Random Glucose 95 56 Total Protein 7.3 Albumin 2.8 Calcium Level 9.0 9.1 Alkaline Phosphatase 238 Aspartate Amino Transf (AST/SGOT) 90 Alanine Aminotransferase (ALT/SGPT) 70 Total Bilirubin 0.3 Sodium Level 133 134 Potassium Level 4.7 5.3 Chloride Level 99 100 Carbon Dioxide Level 22.3 18.4 Anion Gap 12 16 Estimat Glomerular Filtration Rate 4 4 B-Type Natriuretic Peptide 293 Urine Color LIGHT-YELLOW Urine Turbidity CLEAR Urine pH 5.5 Urine Specific [place] 1.007 Urine Protein NEG Urine Glucose (UA) NEG Urine Ketones NEG Urine Occult Blood MOD Urine Nitrite NEG Urine Bilirubin NEG Urine Urobilinogen LESS THAN 2.0 Urine Leukocyte Esterase NEG Urine RBC 57 Urine WBC 1 Microscopic Urinalysis Comment CULT NOT INDICATED Result Diagram: 02/11/18 0735 02/11/18 0735 Imaging Last Impressions Chest X-Ray 02/10/18 194 Signed Impressions: Service Date/Time: Saturday, February 10, 2018 19:54 - CONCLUSION: 1. Possible mass or lymphadenopathy in the right hilum. CT of the chest, preferably with intravenous contrast, is suggested if felt clinically indicated. 2. Bibasilar scarring versus very small pleural effusions. No acute infiltrate. Naga Rowan MD Lower Extremity Ultrasound 02/10/18 Signed Impressions: Service Date/Time: Saturday, February 10, 2018 17:15 - CONCLUSION: 1. No DVT identified within either lower extremity. Luis Echevarria MD Abdomen/Pelvis CT 02/10/18 Signed Impressions: Service Date/Time: Saturday, February 10, 2018 20:30 - CONCLUSION: 1. Previous left nephroureterectomy. 18 mm mass in the nephrectomy bed and mass in the urinary bladder posterolaterally on the left, presumably recurrent disease. 2. Metastatic retroperitoneal lymphadenopathy. 3. Metastatic liver disease. 4. Mild to moderate right hydronephrosis which is potentially pathologic but could also be benign congenital UPJ obstruction. Comparison to old studies would be helpful. Please see above. 5. Trace ascites. Also mild body wall edema/ anasarca. 6. Small bilateral pleural effusions of the visualized lung bases. Naga Rowan MD Caprini VTE Risk Assessment Caprini VTE Risk Assessment: Mod/High Risk (score >= 2) Caprini Risk Assessment Model Point Value = 1 Point Value = 2 Point Value = 3 Point Value = 5 Age 41-60 Minor surgery BMI > 25 kg/m2 Swollen legs Varicose veins or History of unexplained or recurrent spontaneous Oral contraceptives or hormone replacement Sepsis (< 1 month) Serious lung disease, including pneumonia (< 1 month) Abnormal pulmonary function Acute myocardial infarction Congestive heart failure (< 1 month) History of inflammatory bowel disease Medical patient at bed rest Age 61-74 Arthroscopic surgery Major open surgery (> 45 min) Laparoscopic surgery (> 45 min) Malignancy Confined to bed (> 72 hours) Immobilizing plaster cast Central venous access Age >= 75 History of VTE Family history of VTE Factor V Leiden Prothrombin [id number] Lupus anticoagulant Anticardiolipin antibodies Elevated serum homocysteine Heparin-induced thrombocytopenia Other congenital or acquired thrombophilia Stroke (< 1 month) Elective arthroplasty Hip, pelvis, or leg fracture Acute spinal cord injury (< 1 month) Prophylaxis Regimen Total Risk Factor Score Risk Level Prophylaxis Regimen 0-1 Low Early ambulation 2 Moderate Order ONE of the following: *Sequential Compression Device (SCD) *Heparin 5000 units SQ BID 3-4 Higher Order ONE of the following medications: *Heparin 5000 units SQ TID *Enoxaparin/Lovenox 40 mg SQ daily (WT < 150 kg, CrCl > 30 mL/min) *Enoxaparin/Lovenox 30 mg SQ daily (WT < 150 kg, CrCl > 10-29 mL/min) *Enoxaparin/Lovenox 30 mg SQ BID (WT < 150 kg, CrCl > 30 mL/min) AND/OR *Sequential Compression Device (SCD) 5 or more Highest Order ONE of the following medications: *Heparin 5000 units SQ TID (Preferred with Epidurals) *Enoxaparin/Lovenox 40 mg SQ daily (WT < 150 kg, CrCl > 30 mL/min) *Enoxaparin/Lovenox 30 mg SQ daily (WT < 150 kg, CrCl > 10-29 mL/min) *Enoxaparin/Lovenox 30 mg SQ BID (WT < 150 kg, CrCl > 30 mL/min) AND *Sequential Compression Device (SCD) Assessment and Plan Problem List: (1) Acute renal failure superimposed on stage 3 chronic kidney disease ICD Codes: N17.9 - Acute kidney failure, unspecified; N18.3 - Chronic kidney disease, stage 3 (moderate) Status: Acute Plan: - Pt is an 87 y/o female with metastatic urothelial cell carcinoma of the bladder and ureter with biopsy proven mets to supraclavicular LN and radiographic evidence of retroperitoneal, mediastinal, axillary and pulmonary mets. Pt follows with Dr. Wall. Pt has undergone left nephrectomy and left ureterectomy in 2017 and she recently began palliative systemic chemo with Keytruda. - Pt presented to the ED at [facility] [place] [place] on 02/10/18 with complaints of left leg pain for a few days that is worst with walking as well as decreased UOP - LE US was negative for DVT - Labs in the ED revealed BONY with Cr 9.12, BUN 70, GFR 4. Outpt labs on 01/30/18 noted Cr 1.55, BUN 27, GRF 34. - CT Abd/pelvis (02/10) --> previous left nephroureterectomy, 18 mm mass in the nephrectomy bed and mass in the urinary bladder posterolaterally on the left, presumably recurrent disease, metastatic retroperitoneal lymphadenopathy , metastatic liver disease, mild to moderate right hydronephrosis which is potentially pathologic but could also be benign congenital UPJ obstruction. It also mild body wall edema/anasarca and small bilateral pleural effusions of the visualized lung bases. - Nephrology was consulted at admission - Pt was started on IVF in the ED - Pts Oncologist, Dr. Wall, was also consulted - Repeat labs this morning with Cr 9.38, BUN 73, GFR 4 - Urology has been consulted as well as Interventional Radiology for Nephrostomy tube placement today - Monitor labs closely - Supportive care - DVT prophylaxis with SCDs for now, pt may need chemical DVT prophylaxis once no further procedures are recommended. (2) Malignant neoplasm metastatic from bladder ICD Codes: C67.9 - Malignant neoplasm of bladder, unspecified Status: Chronic Plan: - See above (3) Hypothyroidism ICD Codes: E03.9 - Hypothyroidism, unspecified Status: Chronic Plan: - Home meds continued (4) HTN (hypertension) ICD Codes: I10 - Essential (primary) hypertension Status: Chronic Plan: - Increase Norvasc to 5mg po daily for now - Clonidine PRN - Monitor (5) GERD (gastroesophageal reflux disease) ICD Codes: K21.9 - Gastro-esophageal reflux disease without esophagitis Status: Chronic Plan: - PPI Assessment and Plan Patient examined. Assessment and plan formulated with Katya Yeung PA-C. I agree with the above. Physician Certification 2 Midnight Certification Type: Admission for Inpatient Services Order for Inpatient Services The services are ordered in accordance with Medicare regulations or non- Medicare payer requirements, as applicable. In the case of services not specified as inpatient-only, they are appropriately provided as inpatient services in accordance with the 2-midnight benchmark. Estimated LOS (days): 3 3 days is the estimated time the patient will need to remain in the hospital, assuming treatment plan goals are met and no additional complications. Post-Hospital Plan: Not yet determined Katya Yeung Feb 11, 2018 10:30 Kenji Brice DO Feb 13, 2018 15:26
[2018-02-11] MEDS ORDERED: cloNIDine HCL 0.1 MG TAB PO PRN (11:15)
[2018-02-11] MEDS: amLODIPine BESYLATE 5 MG TAB PO SCH (11:44)
--- NOTE | 2018-02-11 12:19 | PD.CONS ---
HPI Service Urology Consult Requested By Dr Benites Reason for Consult Rt hydronephrosis Primary Care Physician Shadi Segura M.D. Diagnosis: (1) Acute renal failure superimposed on stage 3 chronic kidney disease ICD Code: N17.9 - Acute kidney failure, unspecified; N18.3 - Chronic kidney disease, stage 3 (moderate) (2) Malignant neoplasm metastatic from bladder ICD Code: C67.9 - Malignant neoplasm of bladder, unspecified (3) Hypothyroidism ICD Code: E03.9 - Hypothyroidism, unspecified (4) HTN (hypertension) ICD Code: I10 - Essential (primary) hypertension (5) GERD (gastroesophageal reflux disease) ICD Code: K21.9 - Gastro-esophageal reflux disease without esophagitis (6) Hydronephrosis ICD Code: N13.30 - Unspecified hydronephrosis History of Present Illness 87y.o F well known to urology for her h/o 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 She is s/p left [id number] by Dr Edwards on 07/2017. She is currently under care of oncologist and receiving immunotherapy. Last PET scan in December showed increase in mets of liver and periaortic lymph nodes as well as mediastinal lymph nodes. She was seen in clinic on 02/05/18 and was doing ok with her treatment. Recent cystoscopy was negative but FISH test was positive. Decision was made to finish treatment with oncology and f/u after. She is now admitted to [place] due to complaints of left leg pain for a few days that is worse with walking and decreased UOP. Labs in the ED revealed BONY with Cr 9.12, BUN 70, GFR 4. Outpt labs on 01/30/18 noted Cr 1.55, BUN 27, GRF 34. CT Abd/pelvis in the ED noted previous left nephroureterectomy, 18 mm mass in the nephrectomy bed and mass in the urinary bladder posterolaterally on the left, presumably recurrent disease, metastatic retroperitoneal lymphadenopathy, metastatic liver disease, mild to moderate right hydronephrosis which is potentially pathologic but could also be benign congenital UPJ obstruction. She has no f/c/n/v, no abd pain. Her findings of right hydronephrosis are due to mass effect on a ureter from enlarged lymph nodes . Review of Systems Except as stated in HPI: all other systems reviewed are Neg Past Family Social History Past Medical History Metastatic urothelial cell carcinoma of the bladder and ureter with biopsy proven mets to supraclavicular LN and radiographic evidence of retroperitoneal, mediastinal, axillary and pulmonary mets. Pt follows with Dr. Wall. Pt has undergone left nephrectomy and left ureterectomy. She recently began palliative systemic chemo with Keytruda. . Anemia Osteoarthritis Hx of vertigo GERD HTN Hypothyroidism Pulmonary HTN Past Surgical History Left nephrectomy with TURBT in 2017 Appendectomy Cataract surgery Cystectomy Gastric bypass Hemorrhoidectomy Allergies: Coded Allergies: codeine (Unverified Allergy, Severe, 07/16/17) Family History n/a Social History Remote hx of tobacco use, quit 40 years ago Occasional alcohol use She is and lives locally Physical Exam Vital Signs Date Time Temp Pulse Resp B/P (MAP) Pulse Ox O2 Delivery O2 Flow Rate FiO2 02/11/18 11:52 67 17 158/81 (106) 100 Room Air 02/11/18 11:45 73 17 185/78 (113) 98 Room Air 02/11/18 07:21 67 17 156/67 (96) 97 Room Air 02/11/18 06:37 78 20 154/66 (95) 98 Room Air 02/11/18 03:20 97.8 76 20 142/62 (88) 98 Room Air 02/11/18 00:16 20 02/11/18 00:00 98.0 72 20 156/68 (97) 98 Room Air 02/10/18 19:57 98.2 88 20 168/72 (104) 98 Room Air 02/10/18 19:11 98.0 91 20 210/94 (132) 98 Room Air 02/10/18 16:22 97.5 78 20 153/72 (99) 98 Physical Exam GENERAL: This is a well-nourished, well-developed patient, in no apparent distress. CARDIOVASCULAR: Regular rate and rhythm without murmurs RESPIRATORY: Clear to auscultation. Breath sounds equal bilaterally. No wheezes , rales, or rhonchi. GASTROINTESTINAL: Abdomen soft, non-tender, nondistended. . GENITOURINARY:bladder not distended, no CVAT MUSCULOSKELETAL: Extremities without clubbing, cyanosis, mild lt edema NEUROLOGICAL: Awake and alert. . Lab results reviewed: Yes Laboratory Tests Test 02/10/18 17:05 02/10/18 20:25 02/11/18 07:35 White Blood Count 9.6 10.3 Red Blood Count 3.53 3.23 Hemoglobin 10.3 9.7 Hematocrit 30.7 28.5 Mean Corpuscular Volume 86.8 88.2 Mean Corpuscular Hemoglobin 29.2 30.0 Mean Corpuscular Hemoglobin Concent 33.7 34.0 Red Cell Distribution Width 14.0 14.4 Platelet Count 353 362 Mean Platelet Volume 6.6 7.0 Neutrophils (%) (Auto) 70.8 68.2 Lymphocytes (%) (Auto) 14.5 16.8 Monocytes (%) (Auto) 13.2 13.7 Eosinophils (%) (Auto) 1.2 1.0 Basophils (%) (Auto) 0.3 0.3 Neutrophils # (Auto) 6.8 7.0 Lymphocytes # (Auto) 1.4 1.7 Monocytes # (Auto) 1.3 1.4 Eosinophils # (Auto) 0.1 0.1 Basophils # (Auto) 0.0 0.0 CBC Comment DIFF FINAL DIFF FINAL Differential Comment Prothrombin Time 10.5 Prothromb Time International Ratio 1.0 Activated Partial Thromboplast Time 31.0 Blood Urea Nitrogen 70 73 Creatinine 9.12 9.38 Random Glucose 95 56 Total Protein 7.3 Albumin 2.8 Calcium Level 9.0 9.1 Alkaline Phosphatase 238 Aspartate Amino Transf (AST/SGOT) 90 Alanine Aminotransferase (ALT/SGPT) 70 Total Bilirubin 0.3 Sodium Level 133 134 Potassium Level 4.7 5.3 Chloride Level 99 100 Carbon Dioxide Level 22.3 18.4 Anion Gap 12 16 Estimat Glomerular Filtration Rate 4 4 B-Type Natriuretic Peptide 293 Urine Color LIGHT-YELLOW Urine Turbidity CLEAR Urine pH 5.5 Urine Specific [place] 1.007 Urine Protein NEG Urine Glucose (UA) NEG Urine Ketones NEG Urine Occult Blood MOD Urine Nitrite NEG Urine Bilirubin NEG Urine Urobilinogen LESS THAN 2.0 Urine Leukocyte Esterase NEG Urine RBC 57 Urine WBC 1 Microscopic Urinalysis Comment CULT NOT INDICATED Result Diagram: 02/11/18 0735 02/11/18 0735 Personally reviewed images: Yes Imaging Last Impressions Chest X-Ray 02/10/181943 Signed Impressions: Service Date/Time: Saturday, February 10, 2018 19:54 - CONCLUSION: 1. Possible mass or lymphadenopathy in the right hilum. CT of the chest, preferably with intravenous contrast, is suggested if felt clinically indicated. 2. Bibasilar scarring versus very small pleural effusions. No acute infiltrate. Naga Rowan MD Lower Extremity Ultrasound 02/10/18 0000 Signed Impressions: Service Date/Time: Saturday, February 10, 2018 17:15 - CONCLUSION: 1. No DVT identified within either lower extremity. Luis Echevarria MD Abdomen/Pelvis CT 02/10/18 0000 Signed Impressions: Service Date/Time: Saturday, February 10, 2018 20:30 - CONCLUSION: 1. Previous left nephroureterectomy. 18 mm mass in the nephrectomy bed and mass in the urinary bladder posterolaterally on the left, presumably recurrent disease. 2. Metastatic retroperitoneal lymphadenopathy. 3. Metastatic liver disease. 4. Mild to moderate right hydronephrosis which is potentially pathologic but could also be benign congenital UPJ obstruction. Comparison to old studies would be helpful. Please see above. 5. Trace ascites. Also mild body wall edema/ anasarca. 6. Small bilateral pleural effusions of the visualized lung bases. Naga Rowan MD Assessment and Plan Assessment and Plan - Continue care as per primary team - Pt will benefit from right PCN placement by IR for right hydronephrosis management - Continue treatment as per oncologist - Follow up with urology as outpt with Dr Edwards as planned before Discussed with Dr Edwards attending who agrees with this plan Problem Qualifiers (1) Hydronephrosis: Qualified Codes: N13.39 - Other hydronephrosis Rogelio Sam Feb 11, 2018 12:19
--- NOTE | 2018-02-11 12:21 | PD.CONS ---
HPI Service Nephrology Consult Requested By Dr. Brice Reason for Consult ARF/CKD/Hyperkalemia Primary Care Physician Shadi Segura M.D. History of Present Illness 87 year old female with poorly differentiated urothelial cancer with metastasis , Left Nephrectomy, had Supraclavicular LN biopsy,she was unable to pass urine for 3 days, only small amount came out, she states she has voided this morning, she has a CT scan showing tumor in Left nephrectomy bed, hydronephrosis right kidney as well, her creatinine is above 9, she is not in distress. She was on Immunotherapy Keytruda which was palliative. She is aware of kidney disease and thinking about palliative care. Review of Systems Constitutional: COMPLAINS OF: Fatigue Gastrointestinal: COMPLAINS OF: Nausea, Anorexia Genitourinary: COMPLAINS OF: Dysuria Musculoskeletal: COMPLAINS OF: Joint pain, Muscle aches, Back pain Psychiatric: COMPLAINS OF: Depression Past Family Social History Allergies: Coded Allergies: codeine (Unverified Allergy, Severe, 07/16/17) Past Medical History metastatic urothelial cell carcinoma of the bladder and ureter with biopsy proven mets to supraclavicular LN and radiographic evidence of retroperitoneal, mediastinal, axillary and pulmonary mets. Pt follows with Dr. Wall. Pt has undergone left nephrectomy and left ureterectomy. She recently began palliative systemic chemo with Keytruda. . Anemia Osteoarthritis Hx of vertigo GERD HTN Hypothyroidism Pulmonary HTN Past Surgical History Left nephrectomy with TURBT in 2017 Appendectomy Cataract surgery Cystectomy Gastric bypass Hemorrhoidectomy Reported Medications Reported Meds & Active Scripts Active Reported Calcium (Calcium Carbonate-Cholecalciferol) 1,250-100 Mg-Unit Chew 1 Tab CHEW Multiple Vitamin 1 Tab 1 Tab PO DAILY Amlodipine (Amlodipine Besylate) 2.5 Mg Tab 2.5 Mg PO DAILY Omeprazole 20 Mg Tab 20 Mg PO DAILY Chlorthalidone 25 Mg Tab 25 Mg PO DAILY Levothyroxine (Levothyroxine Sodium) 75 Mcg Tab 75 Mcg PO DAILY Active Ordered Medications Current Medications Medications (Trade) Dose Ordered Sig/Patel Route Start Time Stop Time Status Last Admin (NS Flush) 2 ml UNSCH PRN IV FLUSH 02/10/18 19:45 (NS Flush) 2 ml BID IV FLUSH 02/10/18 21:00 (Tylenol) 650 mg Q4H PRN PO 02/10/18 19:45 02/10/18 22:49 (Zofran Inj) 4 mg Q6H PRN IVP 02/10/18 19:45 (Narcan Inj) 0.4 mg UNSCH PRN IV PUSH 02/10/18 19:45 (Dulcolax Supp) 10 mg DAILY PRN RECTAL 02/10/18 19:45 Sodium Chloride 1,000 ml @ 100 mls/hr Q10H IV 02/10/18 20:00 02/11/18 06:14 (Synthroid) 75 mcg DAILY@0600 PO 02/11/18 06:00 02/11/18 06:14 (Protonix) 20 mg DAILY PO 02/11/18 09:00 (Catapres) 0.1 mg Q6H PRN PO 02/11/18 11:15 (Norvasc) 5 mg DAILY PO 02/11/18 11:30 02/11/18 11:44 Family History noncontributory Social History ex smoker stopped 40 years ago, no ETOH Physical Exam Vital Signs Vital Signs Date Time Temp Pulse Resp B/P (MAP) Pulse Ox O2 Delivery O2 Flow Rate FiO2 02/11/18 11:52 67 17 158/81 (106) 100 Room Air 02/11/18 11:45 73 17 185/78 (113) 98 Room Air 02/11/18 07:21 67 17 156/67 (96) 97 Room Air 02/11/18 06:37 78 20 154/66 (95) 98 Room Air 02/11/18 03:20 97.8 76 20 142/62 (88) 98 Room Air 02/11/18 00:16 20 02/11/18 00:00 98.0 72 20 156/68 (97) 98 Room Air 02/10/18 19:57 98.2 88 20 168/72 (104) 98 Room Air 02/10/18 19:11 98.0 91 20 210/94 (132) 98 Room Air 02/10/18 16:22 97.5 78 20 153/72 (99) 98 Physical Exam GENERAL: Well-nourished, well-developed patient. SKIN: Warm and dry. HEAD: Normocephalic. EYES: No scleral icterus. No injection or drainage. NECK: Supple, trachea midline. No JVD or lymphadenopathy. CARDIOVASCULAR: Regular rate and rhythm without murmurs, gallops, or rubs. RESPIRATORY: Breath sounds diminished at bases GASTROINTESTINAL: Abdomen soft, non-tender, nondistended. EXTREMITIES: No cyanosis, 1 plus edema. NEUROLOGICAL: Awake, alert, and oriented x 3. Non-focal. Laboratory Laboratory Tests Test 02/10/18 17:05 02/10/18 20:25 02/11/18 07:35 White Blood Count 9.6 10.3 Red Blood Count 3.53 3.23 Hemoglobin 10.3 9.7 Hematocrit 30.7 28.5 Mean Corpuscular Volume 86.8 88.2 Mean Corpuscular Hemoglobin 29.2 30.0 Mean Corpuscular Hemoglobin Concent 33.7 34.0 Red Cell Distribution Width 14.0 14.4 Platelet Count 353 362 Mean Platelet Volume 6.6 7.0 Neutrophils (%) (Auto) 70.8 68.2 Lymphocytes (%) (Auto) 14.5 16.8 Monocytes (%) (Auto) 13.2 13.7 Eosinophils (%) (Auto) 1.2 1.0 Basophils (%) (Auto) 0.3 0.3 Neutrophils # (Auto) 6.8 7.0 Lymphocytes # (Auto) 1.4 1.7 Monocytes # (Auto) 1.3 1.4 Eosinophils # (Auto) 0.1 0.1 Basophils # (Auto) 0.0 0.0 CBC Comment DIFF FINAL DIFF FINAL Differential Comment Prothrombin Time 10.5 Prothromb Time International Ratio 1.0 Activated Partial Thromboplast Time 31.0 Blood Urea Nitrogen 70 73 Creatinine 9.12 9.38 Random Glucose 95 56 Total Protein 7.3 Albumin 2.8 Calcium Level 9.0 9.1 Alkaline Phosphatase 238 Aspartate Amino Transf (AST/SGOT) 90 Alanine Aminotransferase (ALT/SGPT) 70 Total Bilirubin 0.3 Sodium Level 133 134 Potassium Level 4.7 5.3 Chloride Level 99 100 Carbon Dioxide Level 22.3 18.4 Anion Gap 12 16 Estimat Glomerular Filtration Rate 4 4 B-Type Natriuretic Peptide 293 Urine Color LIGHT-YELLOW Urine Turbidity CLEAR Urine pH 5.5 Urine Specific [place] 1.007 Urine Protein NEG Urine Glucose (UA) NEG Urine Ketones NEG Urine Occult Blood MOD Urine Nitrite NEG Urine Bilirubin NEG Urine Urobilinogen LESS THAN 2.0 Urine Leukocyte Esterase NEG Urine RBC 57 Urine WBC 1 Microscopic Urinalysis Comment CULT NOT INDICATED Result Diagram: 02/11/18 0735 02/11/18 0735 Imaging Last Impressions Chest X-Ray 02/10/18 1944 Signed Impressions: Service Date/Time: Saturday, February 10, 2018 19:54 - CONCLUSION: 1. Possible mass or lymphadenopathy in the right hilum. CT of the chest, preferably with intravenous contrast, is suggested if felt clinically indicated. 2. Bibasilar scarring versus very small pleural effusions. No acute infiltrate. Naga Rowan MD Lower Extremity Ultrasound 02/10/18 0000 Signed Impressions: Service Date/Time: Saturday, February 10, 2018 17:15 - CONCLUSION: 1. No DVT identified within either lower extremity. Luis Echevarria MD Abdomen/Pelvis CT 02/10/18 0000 Signed Impressions: Service Date/Time: Saturday, February 10, 2018 20:30 - CONCLUSION: 1. Previous left nephroureterectomy. 18 mm mass in the nephrectomy bed and mass in the urinary bladder posterolaterally on the left, presumably recurrent disease. 2. Metastatic retroperitoneal lymphadenopathy. 3. Metastatic liver disease. 4. Mild to moderate right hydronephrosis which is potentially pathologic but could also be benign congenital UPJ obstruction. Comparison to old studies would be helpful. Please see above. 5. Trace ascites. Also mild body wall edema/ anasarca. 6. Small bilateral pleural effusions of the visualized lung bases. Naga Rowan MD Assessment and Plan Problem List: (1) Acute renal failure superimposed on stage 3 chronic kidney disease ICD Codes: N17.9 - Acute kidney failure, unspecified; N18.3 - Chronic kidney disease, stage 3 (moderate) Status: Acute Plan: I have discussed a palliative Nephrostomy, she is willing to try it, I discussed dialysis, she do not wish to do that due to advance stage of her disease process, I agree with her decision, Palliative care is more appropriate will follow as needed (2) Malignant neoplasm metastatic from bladder ICD Codes: C67.9 - Malignant neoplasm of bladder, unspecified Status: Chronic Plan: advance disease process she is now leaning towards Hospice care. (3) Hydronephrosis ICD Codes: N13.30 - Unspecified hydronephrosis Plan: nephrostomy planned Problem Qualifiers (1) Hydronephrosis: Qualified Codes: N13.39 - Other hydronephrosis Stanley Wall MD Feb 11, 2018 12:21
[2018-02-11] MEDS ORDERED: MIDAZOLAM HCL 2 MG/2 ML VIAL ONE ×2 (13:28→14:05)
[2018-02-11] MEDS ORDERED: ceFAZolin 2 GM PREMIX 50 ML ONE (13:49)
--- NOTE | 2018-02-11 14:46 | PD.RAD ---
Post Procedure Progress Note Pre Procedure Diagnosis: (1) BONY (acute kidney injury) (2) Hydronephrosis Post Procedure Diagnosis: (1) Hydronephrosis (2) Acute renal failure superimposed on stage 3 chronic kidney disease Procedure Date: Feb 11, 2018 Supervising Radiologist: Moncho Muñoz Proceduralist/Assist: Xi Nava, RT(R)(CV), Benjamin Bernstein RT(R) Anesthesia: Conscious Sedation Plan of Activity Patient to Unit: ROPU Patient Condition: Good See PACS Report for procedural detail/treatment Moncho Muñoz MD Feb 11, 2018 14:46
[2018-02-11] MEDS ORDERED: IOHEXOL 350 MG/ML 50 ML BTL (for RAD DIAG) OTHER ONE (14:54)
--- NOTE | 2018-02-11 15:39 | RADRPT ---
EXAM DATE/TIME: 02/11/2018 13:53 [facility] COMPARISON: CT ABDOMEN & PELVIS W/O CONTRAST, February 10, 2018, 20:30. INDICATIONS : Patient presents with hydronephrosis in need of nephrostomy tube placement. MEDICAL HISTORY : Urothelial cell carcinoma Chronic Rt shoulder pain SURGICAL HISTORY : Ureterectomy Appendectomy LT Nephrectomy ENCOUNTER: Initial ACUITY: 1 day PAIN SCORE: 3/10 LOCATION: Right Lower back FLUORO TIME: 3.8 minutes IMAGE SERIES: 4 SEDATION TIME: 30 minutes CONTRAST: 9 cc Omnipaque (iohexol) 350 MEDICATION(S): 1.) 3 mg midazolam (Versed) IV 2.) 150 mcg fentanyl (Sublimaze) IV 3.) 2 g cefazolin (Ancef) IV Prophylactic antibiotics were administered with appropriate pre-procedure timing. DEVICE(S): 1.) 8 Danish 25 cm nephrostomy catheter Expel with twist-loc PROCEDURE : 1. Ultrasound-guided puncture of the kidney. 2. Antegrade percutaneous pyelogram. 3. Percutaneous nephrostomy placement. 4. Conscious sedation with continuous EKG and oximetry monitoring. The risks, benefits and alternatives to the procedure were explained and verbal and written consent w as obtained. The site was prepped in sterile fashion. Full sterile technique was used, including ca p, mask, sterile gloves and gown and a large sterile sheet. Hand hygiene and 2% chlorhexidine and/or betadine/alcohol prep was utilized per protocol for cutaneous antisepsis. Sterile gel and sterile probe cover were utilized for ultrasound guidance. The skin and subcutaneous tissues were infiltrate d with local anesthetic solution. With ultrasound and fluoroscopic guidance the selected kidney was punctured and a percutaneous antegr sahra pyelogram was performed demonstrating a dilated collecting system. Serial dilatation was perform ed and a prescribed nephrostomy tube was placed within the renal pelvis and sutured in place. Conscious sedation was performed with the prescribed dosages and duration as above in the presence of an independent trained radiology nurse to assist in the monitoring of the patient. EKG and oximetry remained stable throughout the procedure. The patient tolerated the procedure well and there were n o complications. The patient was sent to post anesthesia recovery in stable condition. CONCLUSION: Uncomplicated nephrostomy tube placement as above. Moncho Muñoz MD on February 11, 2018 at 15:35 Board Certified Radiologist. This report was verified electronically.
--- NOTE | 2018-02-11 20:02 | EKG ---
Date Performed: 02/10/2018 Time Performed: 20:00:53 PTAGE: 87 years EKG: Sinus rhythm MARKED LEFT AXIS DEVIATION LEFT BUNDLE BRANCH BLOCK ABNORMAL ECG NO PREVIOUS TRACING DOCTOR: Michelle De Leon Interpretating Date/Time 02/11/2018 20:00:55
[2018-02-11] MEDS: HYDROmorphone HCL PF 2 MG/ML VIAL IV PUSH PRN (20:55)
[2018-02-12] VITALS (10 sets, daily range): BP systolic 136–168; BP diastolic 66–74; PULSE 71–92; RESP 16–18; TEMP 98.2–99.8; O2SAT 94–98
[2018-02-12] MEDS: ACETAMINOPHEN 325 MG TAB PO PRN ×2 (01:12→17:00)
[2018-02-12] MEDS: SODIUM CHLOR 0.9% 1000 ML INJ 1,000 ML IV SCH ×3 (02:21→23:20)
[2018-02-12] MEDS: LEVOTHYROXINE SODIUM 75 MCG TAB PO SCH (06:36)
[2018-02-12 07:36] LABS: AUTOMATED NEUTROPHIL # 6.7 TH/MM3 (1.8-7.7); BASOPHIL % 0.5 % (0.0-2.0); EOSINOPHIL # 0.1 TH/MM3 (0-0.4); EOSINOPHIL % 0.7 % (0.0-4.0); HEMATOCRIT 27.7 % (35.0-46.0); HEMOGLOBIN 9.5 GM/DL (11.6-15.3); LYMPH % 14.9 % (9.0-44.0); LYMPHOCYTE # 1.5 TH/MM3 (1.0-4.8); MEAN CELL VOLUME 86.1 FL (80.0-100.0); MEAN CORPUSCULAR HEMOGLOBIN 29.5 PG (27.0-34.0); MEAN CORPUSCULAR HGB CONC 34.3 % (32.0-36.0); MEAN PLATELET VOLUME 6.5 FL (7.0-11.0); MONO % 16.1 % (0.0-8.0); MONOCYTE # 1.6 TH/MM3 (0-0.9); NEUT % 67.8 % (16.0-70.0); PLATELET COUNT 378 TH/MM3 (150-450); RED BLOOD COUNT 3.21 MIL/MM3 (4.00-5.30); WHITE BLOOD COUNT 9.8 TH/MM3 (4.0-11.0)
[2018-02-12] MEDS: HYDROmorphone HCL PF 2 MG/ML VIAL IV PUSH PRN ×3 (07:47→21:01)
[2018-02-12 07:56] LABS: BICARBONATE 21.8 MEQ/L (21.0-32.0); CREATININE 3.78 MG/DL (0.50-1.00); MAGNESIUM 1.5 MG/DL (1.5-2.5)
[2018-02-12] MEDS: amLODIPine BESYLATE 5 MG TAB PO SCH (07:56)
[2018-02-12] MEDS: PANTOPRAZOLE SOD 20 MG DELAYED RELEASE TAB PO SCH (07:56)
[2018-02-12] MEDS: SODIUM CHLORIDE 0.9% FLUSH 10 ML FLUSH IV FLUSH SCH ×2 (07:57→21:00)
--- NOTE | 2018-02-12 18:26 | HHI.PR ---
Subjective Remarks No new concerns Objective Vitals Vital Signs Date Time Temp Pulse Resp B/P (MAP) Pulse Ox O2 Delivery O2 Flow Rate FiO2 02/12/18 13:50 17 02/12/18 12:00 99.6 80 16 168/70 (102) 94 02/12/18 12:00 84 02/12/18 08:00 81 02/12/18 07:57 98.2 79 18 158/72 (100) 98 02/12/18 04:06 71 02/12/18 04:00 99.1 78 18 159/72 (101) 94 02/12/18 00:09 87 02/12/18 00:00 99.4 89 18 166/74 (104) 94 02/11/18 21:31 99.4 92 18 145/65 (91) 02/11/18 18:41 87 16 162/76 (104) 97 Room Air 02/12/18 02/12/18 02/13/18 15:00 23:00 07:00 Output Total 2050 ml 875 ml Balance -2050 ml -875 ml Drainage Total 2050 ml 875 ml Result Diagram: 02/12/18 0703 02/12/18 0703 Other Results Laboratory Tests Test 02/10/18 17:05 02/10/18 20:25 02/11/18 07:35 02/12/18 07:03 White Blood Count 9.6 TH/MM3 10.3 TH/MM3 9.8 TH/MM3 Red Blood Count 3.53 MIL/MM3 3.23 MIL/MM3 3.21 MIL/MM3 Hemoglobin 10.3 GM/DL 9.7 GM/DL 9.5 GM/DL Hematocrit 30.7 % 28.5 % 27.7 % Mean Corpuscular Volume 86.8 FL 88.2 FL 86.1 FL Mean Corpuscular Hemoglobin 29.2 PG 30.0 PG 29.5 PG Mean Corpuscular Hemoglobin Concent 33.7 % 34.0 % 34.3 % Red Cell Distribution Width 14.0 % 14.4 % 14.0 % Platelet Count 353 TH/MM3 362 TH/MM3 378 TH/MM3 Mean Platelet Volume 6.6 FL 7.0 FL 6.5 FL Neutrophils (%) (Auto) 70.8 % 68.2 % 67.8 % Lymphocytes (%) (Auto) 14.5 % 16.8 % 14.9 % Monocytes (%) (Auto) 13.2 % 13.7 % 16.1 % Eosinophils (%) (Auto) 1.2 % 1.0 % 0.7 % Basophils (%) (Auto) 0.3 % 0.3 % 0.5 % Neutrophils # (Auto) 6.8 TH/MM3 7.0 TH/MM3 6.7 TH/MM3 Lymphocytes # (Auto) 1.4 TH/MM3 1.7 TH/MM3 1.5 TH/MM3 Monocytes # (Auto) 1.3 TH/MM3 1.4 TH/MM3 1.6 TH/MM3 Eosinophils # (Auto) 0.1 TH/MM3 0.1 TH/MM3 0.1 TH/MM3 Basophils # (Auto) 0.0 TH/MM3 0.0 TH/MM3 0.0 TH/MM3 CBC Comment DIFF FINAL DIFF FINAL DIFF FINAL Differential Comment Prothrombin Time 10.5 SEC Prothromb Time International Ratio 1.0 RATIO Activated Partial Thromboplast Time 31.0 SEC Blood Urea Nitrogen 70 MG/DL 73 MG/DL 44 MG/DL Creatinine 9.12 MG/DL 9.38 MG/DL 3.78 MG/DL Random Glucose 95 MG/DL 56 MG/DL 64 MG/DL Total Protein 7.3 GM/DL Albumin 2.8 GM/DL Calcium Level 9.0 MG/DL 9.1 MG/DL 9.0 MG/DL Alkaline Phosphatase 238 U/L Aspartate Amino Transf (AST/SGOT) 90 U/L Alanine Aminotransferase (ALT/SGPT) 70 U/L Total Bilirubin 0.3 MG/DL Sodium Level 133 MEQ/L 134 MEQ/L 141 MEQ/L Potassium Level 4.7 MEQ/L 5.3 MEQ/L 3.9 MEQ/L Chloride Level 99 MEQ/L 100 MEQ/L 106 MEQ/L Carbon Dioxide Level 22.3 MEQ/L 18.4 MEQ/L 21.8 MEQ/L Anion Gap 12 MEQ/L 16 MEQ/L 13 MEQ/L Estimat Glomerular Filtration Rate 4 ML/MIN 4 ML/MIN 11 ML/MIN B-Type Natriuretic Peptide 293 PG/ML Urine Color LIGHT-YELLOW Urine Turbidity CLEAR Urine pH 5.5 Urine Specific [place] 1.007 Urine Protein NEG mg/dL Urine Glucose (UA) NEG mg/dL Urine Ketones NEG mg/dL Urine Occult Blood MOD Urine Nitrite NEG Urine Bilirubin NEG Urine Urobilinogen LESS THAN 2.0 MG/DL Urine Leukocyte Esterase NEG Urine RBC 57 /hpf Urine WBC 1 /hpf Microscopic Urinalysis Comment CULT NOT INDICATED Magnesium Level 1.5 MG/DL Imaging Last Impressions Chest X-Ray 02/10/181943 Signed Impressions: Service Date/Time: Saturday, February 10, 2018 19:54 - CONCLUSION: 1. Possible mass or lymphadenopathy in the right hilum. CT of the chest, preferably with intravenous contrast, is suggested if felt clinically indicated. 2. Bibasilar scarring versus very small pleural effusions. No acute infiltrate. Naga Rowan MD Lower Extremity Ultrasound 02/10/18 0000 Signed Impressions: Service Date/Time: Saturday, February 10, 2018 17:15 - CONCLUSION: 1. No DVT identified within either lower extremity. Luis Echevarria MD Abdomen/Pelvis CT 02/10/18 Signed Impressions: Service Date/Time: Saturday, February 10, 2018 20:30 - CONCLUSION: 1. Previous left nephroureterectomy. 18 mm mass in the nephrectomy bed and mass in the urinary bladder posterolaterally on the left, presumably recurrent disease. 2. Metastatic retroperitoneal lymphadenopathy. 3. Metastatic liver disease. 4. Mild to moderate right hydronephrosis which is potentially pathologic but could also be benign congenital UPJ obstruction. Comparison to old studies would be helpful. Please see above. 5. Trace ascites. Also mild body wall edema/ anasarca. 6. Small bilateral pleural effusions of the visualized lung bases. Naga Rowan MD Objective Remarks GENERAL: This is a well-nourished, well-developed patient, in no apparent distress. CARDIO: Regular. RESP: CTA bilaterally. No wheezes, rales, or rhonchi. ABD: +BS, soft, non-tender, nondistended. : right nephrotomy tube in place and draining EXT: Minimal bilateral LE edema. Negative Barajas's sign NEURO: Awake and alert. Motor and sensory grossly within normal limits. Normal speech. Procedures IR placed right nephrostomy tube 02/11- Dr. 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 Pt follows with Dr. Wall. Pt has undergone left nephrectomy and left ureterectomy in 2017 and she recently began palliative systemic chemo with Keytruda. - Pt presented to the ED at [facility] [place] on [place]/10/18 with complaints of left leg pain for a few days that is worst with walking as well as decreased UOP - LE US was negative for DVT - Labs in the ED revealed BONY with Cr 9.12, BUN 70, GFR 4. Outpt labs on 01/30/18 noted Cr 1.55, BUN 27, GRF 34. - CT Abd/pelvis (02/10) --> previous left nephroureterectomy, 18 mm mass in the nephrectomy bed and mass in the urinary bladder posterolaterally on the left, presumably recurrent disease, metastatic retroperitoneal lymphadenopathy , metastatic liver disease, mild to moderate right hydronephrosis which is potentially pathologic but could also be benign congenital UPJ obstruction. It also mild body wall edema/anasarca and small bilateral pleural effusions of the visualized lung bases. - Nephrology was consulted at admission - Pt was started on IVF in the ED - Pts Oncologist, Dr. Wall, was also consulted, appreciate input - Repeat labs 02/11 Cr 9.38, BUN 73, GFR 4 -> (02/12) BUN 44, creatinine 3.78, GFR 11 - recheck labs in AM - Urology has been consulted, also following - Interventional Radiology consulted. Patient s/p right Nephrostomy tube placement 02/[address] Tarango - Monitor labs closely - Supportive care - palliative care/hospice would be appropriate. Discussed options with patient and family. -> consult placed to hospice - DVT prophylaxis with SCDs for now, pt may need chemical DVT prophylaxis once no further procedures are recommended. (2) Malignant neoplasm metastatic from bladder ICD Codes: C67.9 - Malignant neoplasm of bladder, unspecified Status: Chronic Plan: - See above (3) Hypothyroidism ICD Codes: E03.9 - Hypothyroidism, unspecified Status: Chronic Plan: - Home meds continued (4) HTN (hypertension) ICD Codes: I10 - Essential (primary) hypertension Status: Chronic Plan: - Increase Norvasc to 5mg po daily for now - Clonidine PRN - Monitor (5) GERD (gastroesophageal reflux disease) ICD Codes: K21.9 - Gastro-esophageal reflux disease without esophagitis Status: Chronic Plan: - PPI (6) Hydronephrosis ICD Codes: N13.30 - Unspecified hydronephrosis Assessment and Plan Patient examined. Assessment and plan formulated with Chanell Nava PA-C. I agree with the above. Problem Qualifiers (1) Hydronephrosis: Qualified Codes: N13.39 - Other hydronephrosis Chanell Nava Feb 12, 2018 18:26 Kenji Brice DO Feb 13, 2018 15:27
[2018-02-13] VITALS: BP 135/68; PULSE 84; RESP 18; TEMP 98.1; O2SAT 94
[2018-02-13 04:00] VITALS: BP 132/67; PULSE 82; RESP 18; TEMP 98; O2SAT 94
[2018-02-13 04:50] LABS: AUTOMATED NEUTROPHIL # 7.5 TH/MM3 (1.8-7.7); BASOPHIL % 0.4 % (0.0-2.0); EOSINOPHIL # 0.1 TH/MM3 (0-0.4); EOSINOPHIL % 0.6 % (0.0-4.0); HEMATOCRIT 30.2 % (35.0-46.0); HEMOGLOBIN 10.1 GM/DL (11.6-15.3); LYMPH % 14.1 % (9.0-44.0); LYMPHOCYTE # 1.5 TH/MM3 (1.0-4.8); MEAN CELL VOLUME 86.5 FL (80.0-100.0); MEAN CORPUSCULAR HEMOGLOBIN 28.9 PG (27.0-34.0); MEAN CORPUSCULAR HGB CONC 33.4 % (32.0-36.0); MEAN PLATELET VOLUME 6.7 FL (7.0-11.0); MONO % 14.9 % (0.0-8.0); MONOCYTE # 1.6 TH/MM3 (0-0.9); PLATELET COUNT 387 TH/MM3 (150-450); RED BLOOD COUNT 3.49 MIL/MM3 (4.00-5.30); RED CELL DISTRIBUTION WIDTH 14.1 % (11.6-17.2); WHITE BLOOD COUNT 10.8 TH/MM3 (4.0-11.0)
[2018-02-13 05:19] LABS: BICARBONATE 24.2 MEQ/L (21.0-32.0); CREATININE 1.92 MG/DL (0.50-1.00)
[2018-02-13] MEDS: LEVOTHYROXINE SODIUM 75 MCG TAB PO SCH (05:49)
[2018-02-13 08:00] VITALS: BP 147/68; PULSE 81; RESP 16; TEMP 99.6; O2SAT 96
[2018-02-13] MEDS: SODIUM CHLOR 0.9% 1000 ML INJ 1,000 ML IV SCH ×3 (08:00→22:05)
[2018-02-13] MEDS: SODIUM CHLORIDE 0.9% FLUSH 10 ML FLUSH IV FLUSH SCH ×2 (09:00→22:05)
[2018-02-13] MEDS: PANTOPRAZOLE SOD 20 MG DELAYED RELEASE TAB PO SCH (09:30)
[2018-02-13] MEDS: amLODIPine BESYLATE 5 MG TAB PO SCH (09:31)
[2018-02-13] MEDS: HYDROmorphone HCL PF 2 MG/ML VIAL IV PUSH PRN (11:40)
[2018-02-13 12:00] VITALS: BP 157/74; PULSE 91; RESP 16; TEMP 98.4; O2SAT 95
--- NOTE | 2018-02-13 15:26 | HHI.PR ---
Subjective Remarks No new complaints. Objective Vitals Vital Signs Date Time Temp Pulse Resp B/P (MAP) Pulse Ox O2 Delivery O2 Flow Rate FiO2 02/13/18 12:00 98.4 91 16 157/74 (101) 95 02/13/18 08:00 99.6 81 16 147/68 (94) 96 02/13/18 04:00 98.0 82 18 132/67 (88) 94 02/13/18 00:00 98.1 84 18 135/68 (90) 94 02/12/18 20:00 92 02/12/18 20:00 98.7 86 18 136/66 (89) 95 02/12/18 19:49 99.8 84 18 142/70 (94) 95 02/12/18 18:00 20 02/12/18 16:00 99.2 86 16 164/74 (104) 97 Result Diagram: 02/13/18 0346 02/13/18 0346 Imaging Last Impressions Chest X-Ray 02/10/18 194 Signed Impressions: Service Date/Time: Saturday, February 10, 2018 19:54 - CONCLUSION: 1. Possible mass or lymphadenopathy in the right hilum. CT of the chest, preferably with intravenous contrast, is suggested if felt clinically indicated. 2. Bibasilar scarring versus very small pleural effusions. No acute infiltrate. Naga Rowan MD Lower Extremity Ultrasound 02/10/18 0000 Signed Impressions: Service Date/Time: Saturday, February 10, 2018 17:15 - CONCLUSION: 1. No DVT identified within either lower extremity. Luis Echevarria MD Abdomen/Pelvis CT 02/10/18 0000 Signed Impressions: Service Date/Time: Saturday, February 10, 2018 20:30 - CONCLUSION: 1. Previous left nephroureterectomy. 18 mm mass in the nephrectomy bed and mass in the urinary bladder posterolaterally on the left, presumably recurrent disease. 2. Metastatic retroperitoneal lymphadenopathy. 3. Metastatic liver disease. 4. Mild to moderate right hydronephrosis which is potentially pathologic but could also be benign congenital UPJ obstruction. Comparison to old studies would be helpful. Please see above. 5. Trace ascites. Also mild body wall edema/ anasarca. 6. Small bilateral pleural effusions of the visualized lung bases. Naga Rowan MD Objective Remarks GENERAL: This is a well-nourished, well-developed patient, in no apparent distress. CARDIO: Regular. RESP: CTA bilaterally. No wheezes, rales, or rhonchi. ABD: +BS, soft, non-tender, nondistended. : right nephrotomy tube in place and draining EXT: Minimal bilateral LE edema. Negative Barajas's sign NEURO: Awake and alert. Motor and sensory grossly within normal limits. Normal speech. Procedures IR placed right nephrostomy tube 02/11- Dr. 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 Pt follows with Dr. Wall. Pt has undergone left nephrectomy and left ureterectomy in 2017 and she recently began palliative systemic chemo with Keytruda. - Pt presented to the ED at [facility] [place] on 02/10/18 with complaints of left leg pain for a few days that is worst with walking as well as decreased UOP - LE US was negative for DVT - Labs in the ED revealed BONY with Cr 9.12, BUN 70, GFR 4. Outpt labs on 01/30/18 noted Cr 1.55, BUN 27, GRF 34. - CT Abd/pelvis (02/10) --> previous left nephroureterectomy, 18 mm mass in the nephrectomy bed and mass in the urinary bladder posterolaterally on the left, presumably recurrent disease, metastatic retroperitoneal lymphadenopathy , metastatic liver disease, mild to moderate right hydronephrosis which is potentially pathologic but could also be benign congenital UPJ obstruction. It also mild body wall edema/anasarca and small bilateral pleural effusions of the visualized lung bases. - Nephrology was consulted at admission - Pt was started on IVF in the ED - Pts Oncologist, Dr. Wall, was also consulted, appreciate input - Repeat labs 02/11 Cr 9.38, BUN 73, GFR 4 -> (02/12) BUN 44, creatinine 3.78, GFR 11, creatinine 1.92, GFR 25 (02/13) - Interventional Radiology consulted. Patient s/p right Nephrostomy tube placement 02/[address] Tarango - Supportive care - Case d/w Hospice nurse (02/13) - Discharge to home with home hospice 02/14 (2) Malignant neoplasm metastatic from bladder ICD Codes: C67.9 - Malignant neoplasm of bladder, unspecified Status: Chronic Plan: - See above (3) Hypothyroidism ICD Codes: E03.9 - Hypothyroidism, unspecified Status: Chronic Plan: - Home meds continued (4) HTN (hypertension) ICD Codes: I10 - Essential (primary) hypertension Status: Chronic Plan: - Increase Norvasc to 5mg po daily for now - Clonidine PRN - Monitor (5) GERD (gastroesophageal reflux disease) ICD Codes: K21.9 - Gastro-esophageal reflux disease without esophagitis Status: Chronic Plan: - PPI (6) Hydronephrosis ICD Codes: N13.30 - Unspecified hydronephrosis Problem Qualifiers (1) Hydronephrosis: Qualified Codes: N13.39 - Other hydronephrosis Kenji Brice DO Feb 13, 2018 15:26
[2018-02-13] MEDS ORDERED: NORC5TAB PO (15:30)
[2018-02-13 16:00] VITALS: BP 193/79; PULSE 88; RESP 16; TEMP 98.1; O2SAT 94
[2018-02-13] MEDS: ACETAMINOPHEN/HYDROcodone 325 MG/5 MG TAB PO PRN ×2 (17:39→22:16)
[2018-02-13 20:00] VITALS: BP 139/62; PULSE 83; RESP 18; TEMP 98.2; O2SAT 93
[2018-02-14] VITALS: BP 136/62; PULSE 73; RESP 18; TEMP 98.2; O2SAT 94
[2018-02-14 04:00] VITALS: BP 157/70; PULSE 76; RESP 18; TEMP 98; O2SAT 93
[2018-02-14] MEDS: LEVOTHYROXINE SODIUM 75 MCG TAB PO SCH (05:53)
[2018-02-14 08:00] VITALS: BP 133/63; PULSE 77; RESP 18; TEMP 98.1; O2SAT 94
--- NOTE | 2018-02-14 08:32 | HHI.DS ---
Discharge Summary Admission Date Feb 10, 2018 at 19:53 Discharge Date: Feb 14, 2018 Admitting Diagnosis BONY (1) Acute renal failure superimposed on stage 3 chronic kidney disease Diagnosis: Principal ICD Codes: N17.9 - Acute kidney failure, unspecified; N18.3 - Chronic kidney disease, stage 3 (moderate) Status: Acute (2) Malignant neoplasm metastatic from bladder Diagnosis: Principal ICD Codes: C67.9 - Malignant neoplasm of bladder, unspecified Status: Chronic (3) Hypothyroidism Diagnosis: Secondary ICD Codes: E03.9 - Hypothyroidism, unspecified Status: Chronic (4) HTN (hypertension) Diagnosis: Secondary ICD Codes: I10 - Essential (primary) hypertension Status: Chronic (5) GERD (gastroesophageal reflux disease) Diagnosis: Secondary ICD Codes: K21.9 - Gastro-esophageal reflux disease without esophagitis Status: Chronic (6) Hydronephrosis Diagnosis: Principal ICD Codes: N13.30 - Unspecified hydronephrosis Consultants Dr. Wall, nephrology Dr. Edwards, urology Dr. Wall, oncology Hospice Procedures IR placed right nephrostomy tube 02/11- Dr. Tarango Brief History Mrs. 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 Pt follows with Dr. Wall. Pt has undergone left nephrectomy and left ureterectomy in 2016 and she recently began palliative systemic chemo with Keytruda. Pt presented to the ED at [facility] [place] on 02/10/18 with complaints of left leg pain for a few days that is worse with walking and decreased UOP. She reported that for 2 days prior to admission that she did not have any UOP and then yesterday there was only a very small amount of urine when she does urinate which is not her normal. Labs in the ED revealed BONY with Cr 9.12, BUN 70, GFR 4. Outpt labs on 01/30/18 noted Cr 1.55, BUN 27, GRF 34. CT Abd/pelvis in the ED noted previous left nephroureterectomy, 18 mm mass in the nephrectomy bed and mass in the urinary bladder posterolaterally on the left, presumably recurrent disease, metastatic retroperitoneal lymphadenopathy, metastatic liver disease, mild to moderate right hydronephrosis which is potentially pathologic but could also be benign congenital UPJ obstruction. It also mild body wall edema/anasarca and small bilateral pleural effusions of the visualized lung bases. Pt denies any abd pain, chest pain, SOB, nausea/vomiting, fevers or chills. CBC/BMP: 02/13/18 0346 02/13/18 0346 Significant Findings Laboratory Tests Test 02/12/18 07:03 02/13/18 03:46 Red Blood Count 3.21 MIL/MM3 (4.00-5.30) 3.49 MIL/MM3 (4.00-5.30) Hemoglobin 9.5 GM/DL (11.6-15.3) 10.1 GM/DL (11.6-15.3) Hematocrit 27.7 % (35.0-46.0) 30.2 % (35.0-46.0) Mean Platelet Volume 6.5 FL (7.0-11.0) 6.7 FL (7.0-11.0) Monocytes (%) (Auto) 16.1 % (0.0-8.0) 14.9 % (0.0-8.0) Monocytes # (Auto) 1.6 TH/MM3 (0-0.9) 1.6 TH/MM3 (0-0.9) Blood Urea Nitrogen 44 MG/DL (7-18) 25 MG/DL (7-18) Creatinine 3.78 MG/DL (0.50-1.00) 1.92 MG/DL (0.50-1.00) Random Glucose 64 MG/DL (74-106) Estimat Glomerular Filtration Rate 11 ML/MIN (>89) 25 ML/MIN (>89) Imaging Last Impressions Nephrostomy 02/11/18 0000 Signed Impressions: Service Date/Time: Sunday, February 11, 2018 13:53 - CONCLUSION: Uncomplicated nephrostomy tube placement as above. Moncho Muñoz MD Chest X-Ray 02/10/18 1944 Signed Impressions: Service Date/Time: Saturday, February 10, 2018 19:54 - CONCLUSION: 1. Possible mass or lymphadenopathy in the right hilum. CT of the chest, preferably with intravenous contrast, is suggested if felt clinically indicated. 2. Bibasilar scarring versus very small pleural effusions. No acute infiltrate. Naga Rowan MD Lower Extremity Ultrasound 02/10/18 0000 Signed Impressions: Service Date/Time: Saturday, February 10, 2018 17:15 - CONCLUSION: 1. No DVT identified within either lower extremity. Luis Echevarria MD Abdomen/Pelvis CT 02/10/18 0000 Signed Impressions: Service Date/Time: Saturday, February 10, 2018 20:30 - CONCLUSION: 1. Previous left nephroureterectomy. 18 mm mass in the nephrectomy bed and mass in the urinary bladder posterolaterally on the left, presumably recurrent disease. 2. Metastatic retroperitoneal lymphadenopathy. 3. Metastatic liver disease. 4. Mild to moderate right hydronephrosis which is potentially pathologic but could also be benign congenital UPJ obstruction. Comparison to old studies would be helpful. Please see above. 5. Trace ascites. Also mild body wall edema/ anasarca. 6. Small bilateral pleural effusions of the visualized lung bases. Naga Rowan MD PE at Discharge GENERAL: This is a well-nourished, well-developed patient, in no apparent distress. CARDIO: Regular. RESP: CTA bilaterally. No wheezes, rales, or rhonchi. ABD: +BS, soft, non-tender, nondistended. : right nephrotomy tube in place and draining EXT: Minimal bilateral LE edema. Negative Barajas's sign NEURO: Awake and alert. Motor and sensory grossly within normal limits. Normal speech. 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 Pt follows with Dr. Wall. Pt has undergone left nephrectomy and left ureterectomy in 2017 and she recently began palliative systemic chemo with Keytruda. - Pt presented to the ED at [facility] [place] on 02/10/18 with complaints of left leg pain for a few days that is worst with walking as well as decreased UOP - LE US was negative for DVT - Labs in the ED revealed BONY with Cr 9.12, BUN 70, GFR 4. Outpt labs on 01/30/18 noted Cr 1.55, BUN 27, GRF 34. - CT Abd/pelvis (02/10) --> previous left nephroureterectomy, 18 mm mass in the nephrectomy bed and mass in the urinary bladder posterolaterally on the left, presumably recurrent disease, metastatic retroperitoneal lymphadenopathy , metastatic liver disease, mild to moderate right hydronephrosis which is potentially pathologic but could also be benign congenital UPJ obstruction. It also mild body wall edema/anasarca and small bilateral pleural effusions of the visualized lung bases. - Nephrology was consulted at admission - Pt was started on IVF in the ED - Pts Oncologist, Dr. Wall, was also consulted, appreciate input - Repeat labs 02/11 Cr 9.38, BUN 73, GFR 4 -> (02/12) BUN 44, creatinine 3.78, GFR 11, creatinine 1.92, GFR 25 (02/13) - Interventional Radiology consulted. Patient s/p right Nephrostomy tube placement 02/[address] Tarango - Supportive care - Case d/w Hospice nurse (02/13) - Discharge to home with home hospice 02/14 Malignant neoplasm metastatic from bladder - See above Hypothyroidism - Home meds continued HTN (hypertension) - Increase Norvasc to 5mg po daily for now - Clonidine PRN - Monitor GERD (gastroesophageal reflux disease) - PPI Hydronephrosis - Unspecified hydronephrosis Pt Condition on Discharge: Stable Discharge Disposition: Hospice/ Home Discharge Instructions DIET: Follow Instructions for: Heart Healthy Diet Activities you can perform: Weight Bearing as Tasha Activities to Avoid: Strenuous Activity Follow up Referrals: PCP Follow-up - [address] Shadi Segura New Medications: Hydrocodone-Acetaminophen ([place]) 5 Mg-325 Mg Tab 1 TAB PO Q6H PRN for PAIN, #15 TAB 0 Refills Continued Medications: Amlodipine (Amlodipine) 2.5 Mg Tab 2.5 MG PO DAILY for Blood Pressure Management, #30 TAB 0 Refills Calcium Carbonate-Cholecalciferol (Calcium) 1,250-100 Mg-Unit Chew 1 TAB CHEW, TAB Chlorthalidone (Chlorthalidone) 25 Mg Tab 25 MG PO DAILY, TAB 0 Refills Levothyroxine (Levothyroxine) 75 Mcg Tab 75 MCG PO DAILY for Thyroid, #30 TAB 0 Refills Multiple Vitamin (Multiple Vitamin) 1 Tab 1 TAB PO DAILY for Nutritional Supplement, TAB 0 Refills Omeprazole (Omeprazole) 20 Mg Tab 20 MG PO DAILY, #30 TAB 0 Refills Additional Information Patient examined. Assessment and plan formulated with Chanell Nava PA-C. I agree with the above. Chanell Nava Feb 14, 2018 08:32 Kenji Brice DO Feb 16, 2018 01:02
[2018-02-14] MEDS: amLODIPine BESYLATE 5 MG TAB PO SCH (09:11)
[2018-02-14] MEDS: PANTOPRAZOLE SOD 20 MG DELAYED RELEASE TAB PO SCH (09:11)
--- NOTE | 2018-02-14 10:10 | HHI.DCPOC ---
Discharge Care Plan Diagnosis: (1) Malignant neoplasm metastatic from bladder (2) Hydronephrosis (3) Acute renal failure superimposed on stage 3 chronic kidney disease Goals to Promote Your Health * To prevent worsening of your condition and complications * To maintain your health at the optimal level Directions to Meet Your Goals Take your medications as prescribed Follow your dietary instruction Follow activity as directed Keep your appointments as scheduled Take your immunizations and boosters as scheduled If your symptoms worsen call your PCP, if no PCP go to Urgent Care Center or Emergency Room Smoking is Dangerous to Your Health. Avoid second hand smoke Call the 24-hour hour crisis hotline for domestic abuse at Chanell Nava Feb 14, 2018 10:10 Kenji Brice DO Feb 16, 2018 01:03
== END 2018-02-14 09:54 | disposition hospice, home (50) | DRG 683 ==
LOC: NEPE 15:55 → NEDA 19:53 → NEDH 02-11 00:18 → N05A 02-11 20:49
PROVIDERS: ADMIT Hospitalist; ATTEND Hospitalist
PROC: 0T9030Z Drainage of Right Kidney with Drainage Device, Percutaneous Approach (ICD-10-PCS; principal; 2018-02-11)
DX: N17.9 Acute kidney failure, unspecified (principal); C78.00 Secondary malignant neoplasm of unspecified lung; C77.8 Secondary and unspecified malignant neoplasm of lymph nodes of multiple regions; C78.7 Secondary malignant neoplasm of liver and intrahepatic bile duct; C67.9 Malignant neoplasm of bladder, unspecified; N13.39 Other hydronephrosis; D64.9 Anemia, unspecified; I12.9 Hypertensive chronic kidney disease with stage 1 through stage 4 chronic kidney disease, or unspecified chronic kidney disease; N18.3 Chronic kidney disease, stage 3 (moderate); Z90.5 Acquired absence of kidney; E87.5 Hyperkalemia; E03.9 Hypothyroidism, unspecified; K21.9 Gastro-esophageal reflux disease without esophagitis; M19.90 Unspecified osteoarthritis, unspecified site; Z51.5 Encounter for palliative care; Z87.891 Personal history of nicotine dependence
CPT/HCPCS: 50432; 71045; 74176; 80048; 80053; 81001; 83735; 83880; 85025; 85610; 85730; 93005; 93970; 99152; 99153; 99291; C1729; C1769; C1894; J0690; J1170; J2250; J3010; J7030; Q9967